=== PATIENT | female | born 1960 | race Two or more races ===

== ENCOUNTER 2019-04-07 05:36 | Inpatient (IN) | payer BC ==
--- NOTE | 2019-01-06 06:40 | NUR ---
FAMILY FRIEND AT BEDSIDE PATIENTS LONG TIME FRIEND AT BEDSIDE ASKING LOTS OF QUESTIONS, HOVERING OVER PUMPS I GIVE MEDICATION TO PATIENT. FRIEND HAS NO MEDICAL BACKGROUND BUT CONTINUED TO TRY TO ORDER ME TO GIVE SPECIFIC MEDS TO INCREASE BLOOD PRESSURE AND ORDER PROCEDURES SUCH THE BRONC THAT WAS ALREADY THE DOCTORS ORDER. FRIEND WAS TOLD THAT PER HIPPA RULES I AM UNABLE TO GIVE HER DETAILED INFORMATION REGARDING THE PATIENT. SHE WAS GENTLY TOLD THAT THE PATIENTS SON HAD ALL THE CURRENT INFORMATION SO SHE SHOULD CONTACT THE SON FOR INFORMATION REGARDING THE PATIENT. Addendum: 04/10/19 at 0648 by Tamara Germain RN INCORRECT DATE AND TIME DATE SHOULD BE 04/08/19, TIME WAS 2100
[~2019-04-07] VITALS: Ht 165.1 cm; Wt 78.6 kg
[2019-04-07] MEDS: ALBUTEROL SULF 2.5 MG/0.5ML(0.5%) NEB SOLN NEB SCH ×3 (05:53→18:15)
[2019-04-07] MEDS: IPRATROPIUM BROM 0.5 MG/2.5ML INH SOL NEB SCH ×3 (05:53→18:15)
[2019-04-07] MEDS ORDERED: IPRATROPIUM BROM 0.5 MG/2.5ML INH SOL NEB ONE ×2 (06:15→07:45)
[2019-04-07] MEDS ORDERED: VANCOMYCIN PER PHARMACY 1,000 MG IV SCH (06:15)
[2019-04-07] MEDS ORDERED: SODIUM CHLORIDE 0.9% 2,200 ML IV ONE ×2 (06:15)
[2019-04-07] MEDS ORDERED: ALBUTEROL SULF 2.5 MG/0.5ML(0.5%) NEB SOLN NEB ONE ×2 (06:15→07:45)
[2019-04-07] MEDS ORDERED: SODIUM CHLORIDE 0.9% 1,000 ML IVB ONE (07:46)
[2019-04-07 07:48] LABS: Basophils # (auto) 0 uL; Basophils % (auto) 0.1 % (0.0-2.0); Eosinophils # (auto) 0.1 uL; Eosinophils % (auto) 0.6 % (0.0-7.0); Hematocrit 37.2 % (36.0-46.0); Lymphocytes # (auto) 0.5 uL; Lymphocytes % (auto) 3.9 % (10.0-50.0); Mean Corpuscular Hemoglobin 32.4 pg (28.0-32.0); Mean Corpuscular Hgb Conc. 34.8 g/dL (32.0-36.0); Monocytes # (auto) 0.2 uL; Monocytes % (auto) 1.8 % (0.0-12.0); Neutrophils # (auto) 12.1 uL; Neutrophils % (auto) 93.6 % (37.0-80.0); Platelet Count (auto) 283 10^3/uL (140-450); Red Cell Distribution Width 13.6 % (11.8-14.3)
[2019-04-07] MEDS ORDERED: VANCOMYCIN 1GM/250ML 250 ML IV ONE (08:00)
[2019-04-07 08:02] LABS: Albumin 2.3 g/dL (3.4-5.0); Anion Gap 15 (5-15); BUN/Creatinine Ratio 22.1; Blood Urea Nitrogen 25 mg/dL (7-18); Calcium 8.5 mg/dL (8.5-10.1); Carbon Dioxide 21 mmol/L (21-32); Chloride 97 mmol/L (98-107); GFR African American 63 mL/min; GFR Non-African American 52 mL/min; Glucose 153 mg/dL (74-106); Sodium 133 mmol/L (136-145)
[2019-04-07 08:07] LABS: Alanine Aminotransferase 36 U/L (13-56); Alkaline Phosphatase 123 U/L (45-117); Aspartate Aminotransferase 39 U/L (15-37); Bilirubin, Total 1.3 mg/dL (0.2-1.0); Total Protein 7.9 g/dL (6.4-8.2)
[2019-04-07 08:10] LABS: Potassium 2.9 mmol/L (3.5-5.1)
[2019-04-07 08:26] LABS: INR 1.05 (0.9-1.15); Partial Thromboplastin Time 30.2 sec (23.64-32.05)
[2019-04-07] MEDS ORDERED: POTASSIUM EFFERVESENT TAB 25 MEQ PO ONE (08:30)
[2019-04-07] MEDS ORDERED: HYDROmorphone HCL 2 MG/ML VL IV ONE (09:00)
[2019-04-07] MEDS ORDERED: PIPERACILLIN-TAZOB 3.375GM 100 ML IV SCH (09:00)
[2019-04-07] MEDS ORDERED: ONDANSETRON HCL 4 MG/2 ML VIAL IV ONE (09:00)
[2019-04-07] MEDS ORDERED: NITROGLYCERIN 0.4 MG SL TAB SL PRN (12:00)
[2019-04-07] MEDS ORDERED: MORPHINE SULF INJ 2 MG/ML SYRINGE 1ML IV PRN (12:00)
[2019-04-07] MEDS ORDERED: guaiFENesin-DM 100/10mg/5ml SYR PO PRN (12:00)
[2019-04-07] MEDS ORDERED: IOHEXOL 350 MG/ML 100ML IJ ONE (12:29)
[2019-04-07] MEDS: SODIUM CHLORIDE 0.9% 1,000 ML IV SCH (12:36)
[2019-04-07] MEDS: cefTRIAXone 1GM/50ML D5W 50 ML IV SCH (12:37)
[2019-04-07] MEDS: ENSURE CLEAR Apple 8oz Carton PO SCH ×2 (13:25→18:13)
[2019-04-07] MEDS: AZITHROMYCIN 500MG/ 250ML 250 ML IV SCH (14:23)
[2019-04-07] MEDS: ONDANSETRON HCL 4 MG/2 ML VIAL IV PRN ×2 (14:24→19:04)
[2019-04-07] MEDS: MORPHINE SULF INJ 2 MG/ML SYRINGE 1ML IV PRN ×2 (14:24→19:03)
[2019-04-07] MEDS: ACETAMINOPHEN 500 MG TAB PO PRN (14:25)
--- NOTE | 2019-04-07 14:54 | NUR ---
Admit to [facility] POOJA FINLEY admitted to [facility] via gurney on manager cardiac cath,and portable high flow 02 nasal cannula, 100% FIO2. Patient transferred to bed, connected to unit monitoring and oxygen, and weighed by bedscale. Patient oriented to Ingrid roberts RN, unit, room, bed, and unit policies regarding patient care and visiting hours. All questions and concerns addressed, patient verbalized understanding. Sinus tachycardia on bedside monitor 120's. Stable blood pressure. Patient denies chest pain or shortness of breath at this time. Lungs clear anteriorly. Patient able to assist with repositioning in bed. Skin intact. Physical assessment performed. Bed locked in lowest position with call light within reach. Patient instructed to call for assistance PRN, pt verbalized understanding. Will continue to monitor.
[2019-04-07 15:00] VITALS: BP 141/84
--- NOTE | 2019-04-07 15:00 | NUR ---
HOME MEDICATIONS Patient stated she was taking Sumatriptan prior for Migraine but her MD recently stopped this medication because she was going to get Botox injection for treatment on 04/10/19. Patient was on morphine and Shiloh at home for pain but stated "it doesn't work so I haven't been taking them".
[2019-04-07 15:05] VITALS: BP 141/84
--- NOTE | 2019-04-07 15:20 | NUR ---
HIGH FLOW RT decreased fio2% to 90% due to oxygen saturation sustaining 96%. Will continue to monitor for signs of desaturation.
--- NOTE | 2019-04-07 15:52 | NUR ---
PAGED Ryley paged regarding elevated troponin levels. Awaiting call back.
--- NOTE | 2019-04-07 16:07 | NUR ---
RETURNED CALL Ryley ROMANO notified of latic results. No new orders received.
--- NOTE | 2019-04-07 17:32 | NUR ---
MEDICATION/PAIN Patient requesting Ambien for sleep tonight. SANDWICH MAKER paged for orders. He is aware patient still having mild chest tightness but stating morphine doesn't work well. One time dose of Toradol order received.
[2019-04-07] MEDS ORDERED: ZOLPIDEM TARTRATE 5 MG TAB PO PRN (17:45)
[2019-04-07] MEDS ORDERED: KETOROLAC TROMETH 15 mg/ml 1ML VL IV ONE (17:45)
--- NOTE | 2019-04-07 18:00 | NUR ---
OUTPUT Patient denies need or feeling of urination or fullness of bladder. Patient stated she urinate in ER before coming up. Patient stated she will attempt to urine before she goes to sleep tonight.
[2019-04-07] MEDS: BUDESONIDE (INHALATION) 0.5 MG/2 ML NEB NEB SCH (18:15)
--- NOTE | 2019-04-07 18:39 | NUR ---
INTAKE Patient attempting to eat dinner, poor appetite at this time. Patient instructed to take small bites and chew completely before swallowing. No mueller to finish dinner. Patient has not eaten meal in over a week due to poor appetite at home.
--- NOTE | 2019-04-07 19:07 | NUR ---
REPORT Report given to Dorie BOYLE, care endorsed.
--- NOTE | 2019-04-07 19:30 | NUR ---
Opening Shift Note Assumed care of patient, awake and alert,watching TV. Complained of chest tightness and was just given IV Morphine by Day shift RN. Patient is on high flow 40L/min, FIO2 90%. Noted SOB on exertion. RR 25-30/min, Saturation 94%. Afebrile. ECG on Sinus tachycardia. Full assessment done- refer intervention. Instructed on POC and to call for assist PRN, will continue to monitor for changes Q1hr and PRN. Addendum: 04/07/19 at 2039 by Dorie Irwin RN patient was able to talk long sentences without difficulty
[2019-04-07 20:00] VITALS: BP 119/80
--- NOTE | 2019-04-07 20:00 | NUR ---
ELIMINATION/DESATURATION Patient assisted to commode chair. Collected urine sample for lab tests. Had a moderate of loose stool. Noted patient desaturated to 85% while on commode chair but picks up when back to bed. Encouraged to eat small meals each time. Verbalized understanding
--- NOTE | 2019-04-07 20:15 | NUR ---
PARTIAL LINEN CHANGE DONE
--- NOTE | 2019-04-07 20:20 | NUR ---
PAIN RE-ASSESS Pain discomfort decreased to 5/10 will continue to monitor
[2019-04-07 20:24] LABS: Urine Bacteria FEW /hpf (None Seen); Urine Blood 2+ /uL (Negative); Urine Mucus FEW (None Seen); Urine Specific Gravity 1.046 (1.001-1.035); Urine WBC 6 /hpf (0 - 5)
[2019-04-07 23:51] VITALS: BP 119/80
[2019-04-08] VITALS (58 sets, daily range): BP systolic 72–174; BP diastolic 16–116
--- NOTE | 2019-04-08 00:10 | NUR ---
TEMP PATIENT'S TEMP 100F - COOLING MEASURES DONE ICE PACKS AT BOTH AXILLA, COLD COMPRESS ON FOREHEAD WILL CONTINUE TO MONITOR
--- NOTE | 2019-04-08 00:40 | NUR ---
TEMP TEMP 100.4F TYLENOL GIVEN
[2019-04-08] MEDS: ACETAMINOPHEN 500 MG TAB PO PRN (00:41)
[2019-04-08] MEDS: MORPHINE SULF INJ 2 MG/ML SYRINGE 1ML IV PRN (00:48)
--- NOTE | 2019-04-08 02:30 | NUR ---
TEMP RE-ASSESS TEMP RE-CHECKED 98.8F PATIENT IS AWAKE NOW WATCHING TV WILL CONTINUE TO MONITOR
[2019-04-08 05:10] LABS: Basophils # (auto) 0 uL; Basophils % (auto) 0.1 % (0.0-2.0); Eosinophils # (auto) 0.3 uL; Eosinophils % (auto) 3.2 % (0.0-7.0); Hematocrit 30.9 % (36.0-46.0); Hemoglobin 10.6 g/dL (12.2-16.2); Lymphocytes # (auto) 0.3 uL; Lymphocytes % (auto) 3.3 % (10.0-50.0); Mean Corpuscular Hemoglobin 31.9 pg (28.0-32.0); Mean Corpuscular Hgb Conc. 34.3 g/dL (32.0-36.0); Mean Corpuscular Volume 92.9 fL (80.0-100.0); Monocytes # (auto) 0.1 uL; Monocytes % (auto) 0.9 % (0.0-12.0); Neutrophils % (auto) 92.5 % (37.0-80.0); Platelet Count (auto) 242 10^3/uL (140-450); Red Blood Cells 3.32 10^6/uL (4.0-5.20); Red Cell Distribution Width 13.7 % (11.8-14.3); White Blood Cell 9.7 10^3/uL (4.4-10.8)
[2019-04-08 05:28] LABS: Potassium 3.4 mmol/L (3.5-5.1)
[2019-04-08 05:31] LABS: BUN/Creatinine Ratio 21.1
--- NOTE | 2019-04-08 05:50 | NUR ---
PAGED HOSPITALIST FOR LAB RESULTS
[2019-04-08] MEDS: ALBUTEROL SULF 2.5 MG/0.5ML(0.5%) NEB SOLN NEB SCH ×5 (05:54→22:14)
[2019-04-08] MEDS: IPRATROPIUM BROM 0.5 MG/2.5ML INH SOL NEB SCH ×5 (05:54→22:14)
[2019-04-08] MEDS ORDERED: VANCOMYCIN 1,500 MG in D5W 5% 250 ML IV SCH (06:00)
--- NOTE | 2019-04-08 06:20 | NUR ---
HOSPITALIST CALLED BACK TALKED TO JUAN ANTONIO GILBERT INFORMED OF LAB RESULTS ORDER RECEIVED AND VERIFIED
[2019-04-08] MEDS ORDERED: POTASSIUM CHL 20 Meq TABLET PO ONE (06:30)
--- NOTE | 2019-04-08 06:40 | NUR ---
hospitalist re paged as patient said she can't take the big tablets of potassium
[2019-04-08] MEDS: SODIUM CHLORIDE 0.9% 1,000 ML IV SCH ×2 (06:45→18:00)
--- NOTE | 2019-04-08 07:29 | NUR ---
REPORT REPORT GIVEN TO TAMAR RIVERA HOSPITALIST HASN'T CALLED BACK - ENDORSED TO FOLLOW UP POTASSIUM TO BE CHANGED TO LIQUID
[2019-04-08] MEDS: ENSURE CLEAR Apple 8oz Carton PO SCH ×3 (08:00→18:00)
[2019-04-08] MEDS ORDERED: FUROSEMIDE 40 MG/4 ML VIAL IV ONE (08:45)
[2019-04-08] MEDS ORDERED: KETOROLAC TROMETH 15 mg/ml 1ML VL ONE (08:52)
[2019-04-08] MEDS ORDERED: POTASSIUM CHLORIDE 40 MEQ, LIDOCAINE 1% (LOCAL ANESTH.) 4 ML in SODIUM CHL 0.9% 100 ML IV ONE (09:00)
[2019-04-08] MEDS ORDERED: KETOROLAC TROMETH 15 mg/ml 1ML VL IV ONE (09:00)
--- NOTE | 2019-04-08 09:30 | NUR ---
REPORT Received report from Erica BOYLE, awaiting for patient to arrive into room 111.
[2019-04-08] MEDS: ENOXAPARIN SOD 40 MG/0.4 ML SYRINGE SC SCH (09:31)
[2019-04-08] MEDS: cefTRIAXone 1GM/50ML D5W 50 ML IV SCH (09:31)
[2019-04-08] MEDS: BUDESONIDE (INHALATION) 0.5 MG/2 ML NEB NEB SCH ×2 (09:32→22:14)
[2019-04-08] MEDS ORDERED: AZITHROMYCIN 500MG/ 250ML 250 ML IV SCH (10:00)
[2019-04-08] MEDS ORDERED: cefTRIAXone 1GM/50ML D5W 50 ML IV SCH (10:00)
[2019-04-08] MEDS: AZITHROMYCIN 500MG/ 250ML 250 ML IV SCH (10:35)
[2019-04-08] MEDS ORDERED: methylPREDNISolone SOD SUCC 125 MG/2 ML VL IV ONE (11:00)
--- NOTE | 2019-04-08 11:20 | NUR ---
RECEIVED PATIENT Patient arrived into room 111 via [facility] bed transferred patient to ICU bed. Patient alert and oriented X4, speech appropriate, able to make needs know, follows simple commands. Sinus rhythm in the 90's-100's on bedside monitor, pulses palpable on upper/lower extremities with no edema observed. On high flow 40 Liters 90% sating in the mid 90's, NO signs of respiratory distress. Abdomen soft, non distended and bowel sounds present in all quadrant with last bowel movement being on 04/07/2019 per patient. Reynolds catheter draining to gravity clear yellow. IV to the right wrist 20g and left wrist 18g: good blood return and flushes easily infusing potassium replacement and antibiotic. Skin intact. Call light with in reach and bed at lowest position.
--- NOTE | 2019-04-08 11:29 | NUR ---
Resumed care at 0700. Orders reviewed and ongoing assessments being done. Upon initial assessment RR >40 and on high flow nasal cannula with a Fio2 of 80%, at rest pulse oximetry measuring 93% and during activity or speaking decreased to 85%. Diagnosed with bilateral pneumonia. Contacted Cristi Hedrick EMT DRIVER via phone at 0847 and made him aware of her condition. Cristi arrived to unit at 0856, assessed patient. Patient stated "I feel like I'm going to , I can not go on this way". ABG was drawn at 0811 by Carie MCCARTHY and Fio2 was increased to 90%. Results of chest x-ray, ABG reviewed by Cristi EMT DRIVER. Orders obtained to give Lasix 40mg IVP and Ketoralac 15mg IVP given for pleuritic chest pain and for a Reynolds catheter. Cristi discussed the need to transfer to ICU due to current respiratory status and discussed possible intubation if she continues to decompensate. Patient agrees with plan and with intubation if needed. Reynolds catheter insertion Patient assessed and determined to be in need of Reynolds catheter. Patient educated on catheter and reason for insertion. All questions answered. Reynolds catheter 16 guage Finnish inserted with clean sterile technique. Patient tolerated well. IV insertion IV access obtained, via clean sterile technique by inserting 20 gauge catheter to right arm after 1 attempt. IV secured properly. No trauma to site. Patient tolerated procedure well. Dr. Avina, hospitalist in unit at 1100am to round on the patient. Transferred to ICU at 1115. Escorted by Jamilah BOYLE and Christiane TAMEZ. Report perviously given to Rebeca BOYLE via phone. Patient contacted her niece Robbie to make her aware of her transfer.
[2019-04-08] MEDS ORDERED: LEVOFLOXACIN 750MG 150 ML IV SCH (11:30)
--- NOTE | 2019-04-08 11:55 | NUR ---
LABORATORY general technician at bedside, patient refusing to get blood drawn at this time and stating " to come back later." Re timed for 1400.
--- NOTE | 2019-04-08 12:30 | NUR ---
ACTIVITY Patient resting in bed with visitor at bedside. Family stating " that she is having shortness of breath." Patient is saturating 95% on the bedside monitor and able to speak full sentences and upon assessing patient asking for popsicle. Informed patient if shes having shortness of breath she can not have anything to eat or drink for aspiration precautions.
[2019-04-08] MEDS: ACETYLCYSTEINE 20%(200MG/ML) SOL 4ML NEB SCH ×2 (13:58→18:33)
--- NOTE | 2019-04-08 14:00 | NUR ---
FAMILY Family at bedside updated on patient condition.
--- NOTE | 2019-04-08 15:30 | NUR ---
ECHO computer laboratory technician at beside to obtain study.
[2019-04-08] MEDS: HYDROcodone-ACET 5/325MG TAB PO PRN (15:42)
[2019-04-08] MEDS: VANCOMYCIN 750 MG in D5W 5% 250 ML IV SCH (15:43)
[2019-04-08] MEDS: ALPRAZolam 0.25 MG TAB PO PRN (15:43)
--- NOTE | 2019-04-08 15:55 | NUR ---
FAMILY Family at bedside. Patient having full conversation with out any signs or symptoms of respiratory distress. O2 sats 92%.
[2019-04-08] MEDS ORDERED: ETOMIDATE (2MG/ML) 20ML VIAL IV ONE ×2 (17:22)
[2019-04-08] MEDS ORDERED: SUCCINYLCHOLINE CHLORIDE 20 MG/ML 10ML VIAL IV ONE (17:22)
[2019-04-08] MEDS ORDERED: ROCURONIUM 10MG/ML 10ML VIAL IV ONE ×2 (17:22)
--- NOTE | 2019-04-08 17:22 | NUR ---
MD Dr. Blackwood at bedside spoke to patient regarding plan of care. Patient requested to be intubated. MD agreed. Orders received to get ready for intubation and inform RT of intubation. MD ordered: Rocuronium 50mg, Etomidate 20mg, Fentanyl gtt, Diprivan gtt and Versed gtt.
[2019-04-08] MEDS ORDERED: PROPOFOL 100 ML IV ONE (17:24)
[2019-04-08] MEDS ORDERED: MIDAZOLAM DRIP 50 mg/50mL 50 ML IV ONE (17:24)
--- NOTE | 2019-04-08 17:40 | NUR ---
FAMILY/MD/CONSENTS Patients jessica Garcia at bedside and spoke to Dr. Blackwood regarding plan of care. MD also spoke to patient and patient son regarding procedure for tomorrow Bronchoscopy and patient signed consents for that procedure. Consents in chart.
--- NOTE | 2019-04-08 17:55 | NUR ---
INTUBATION Patient intubated by . Patient tolerated well. Orders received, this RN to input into system.
[2019-04-08] MEDS ORDERED: fentaNYL Drip 2500mCg/250mlNS 250 ML IV ONE (17:59)
--- NOTE | 2019-04-08 18:30 | NUR ---
NG TUBE NG tube inserted into left nare and checked placement via air bolus: clamped.
--- NOTE | 2019-04-08 18:50 | NUR ---
RESPIRATORY Respiratory therapist Eladio at bedside and decreased Fio2 down to 50%, Eladio RT spoke to Dr. Blackwood regarding ABG results post intubation.
[2019-04-08] MEDS: PIPERACILLIN-TAZOB 3.375GM 100 ML IV SCH (19:10)
--- NOTE | 2019-04-08 19:11 | NUR ---
SEDATION Charge nurse Constantine increased patients Diprivan gtt to 50mcg.
--- NOTE | 2019-04-08 19:29 | NUR ---
INITIAL CONTACT ASSUMED CARE OF PATIENT PATIENT APPEARS TO BE RESTING IN BED COMFORTABLY IN KHOI-FOWLERS POSITION, INTUBATED AND SEDATED AT THIS TIME ON FENTANYL, PROPOFOL AND VERSED. SEE IV SPREAD SHEET FOR MEDICATIONS AND TITRATION. VITAL SIGNS SHOW SINUS TACH AAO TO SELF ONLY PATIENT RESPONDS TO LIGHT PAIN WITH FACIAL GRIMACE NO S/S OF DISTRESS NOTED, PATIENT DOES NOT APPEAR TO BE IN PAIN HOWEVER PATIENT DOES APPEAR TO BE AGITATED AND ANXIOUS. NOTED WOLFE CATHETER IN PLACE AND DRAINING TO GRAVITY. NOTED NG TUBE TO LEFT NARE IN PLACE WITH NO RESIDUALS. PATIENT APPEARS TO BE DIAPHORETIC AND CLAMMY. TEMP 97.8. VENTILATOR PLUGGED INTO RED OUTLET PER VAP/PROTOCOL. AMBU BAG AT BEDSIDE. BED IN LOWEST LOCKED POSITION, SIDE RAILS UP X 2. PATIENT IN FULL VIEW OF NURSES STATION. SAFETY MAINTAINED, WILL CONTINUE TO MONITOR
[2019-04-08] MEDS: fentaNYL Drip 2500mCg/250mlNS 250 ML IV SCH (20:00)
--- NOTE | 2019-04-08 20:35 | NUR ---
DR. DEL REAL CALLED [facility] LEFT ON CELL NUMBER AWAITING CALL BACK
--- NOTE | 2019-04-08 20:35 | NUR ---
DECREASE IN PATIENT B/P PATIENT APPEARS TO BE CLAMMY/DIAPHORETIC WILL PAGE DR. DEL REAL FOR ORDERS
--- NOTE | 2019-04-08 20:40 | NUR ---
MSG LEFT FOR DR. DEL REAL TEXT MSG SENT AWAITING RESPONSE
--- NOTE | 2019-04-08 20:55 | NUR ---
DR. KABA PAGED PER PBX WILL TRANSFER DIRECTLY TO 'S AVAILABLE TEL NUMBER SPOKE TO DR. KABA, ORDERS GIVEN
[2019-04-08] MEDS ORDERED: NOREPINEPHRINE 8 MG/250ML KIT 250 ML IV ONE (21:00)
[2019-04-08] MEDS: NOREPINEPHRINE 8 MG/250ML KIT 250 ML IV SCH (21:05)
[2019-04-08] MEDS ORDERED: MEROPENEM 1GM IVPB 100 ML IV SCH (22:00)
[2019-04-08] MEDS: PROPOFOL 100 ML IV SCH (22:05)
[2019-04-08] MEDS: MIDAZOLAM DRIP 50 mg/50mL 50 ML IV SCH (22:11)
[2019-04-09] VITALS (108 sets, daily range): BP systolic 86–138; BP diastolic 35–80
[2019-04-09] MEDS: PIPERACILLIN-TAZOB 3.375GM 100 ML IV SCH ×4 (00:15→18:00)
[2019-04-09] MEDS: ACETYLCYSTEINE 20%(200MG/ML) SOL 4ML NEB SCH ×5 (00:18→21:46)
[2019-04-09] MEDS ORDERED: NITROGLYCERIN 2% OINT 1GM PKG TD ONE (01:30)
[2019-04-09] MEDS: VANCOMYCIN 750 MG in D5W 5% 250 ML IV SCH ×2 (02:31→14:00)
[2019-04-09] MEDS: PROPOFOL 100 ML IV SCH ×5 (02:36→20:48)
[2019-04-09] MEDS: IPRATROPIUM BROM 0.5 MG/2.5ML INH SOL NEB SCH ×5 (06:23→21:41)
[2019-04-09] MEDS: ALBUTEROL SULF 2.5 MG/0.5ML(0.5%) NEB SOLN NEB SCH ×5 (06:23→21:41)
[2019-04-09] MEDS: SODIUM CHLORIDE 0.9% 1,000 ML IV SCH ×2 (06:42→20:02)
--- NOTE | 2019-04-09 06:45 | NUR ---
Respiratory note: RECEIVED PATIENT ON V18 CARESCAPE VENT ORALLY INTUBATED WITH AN 8.0 ETT SECURED VIA NEVAEH AT THE 22CM MARKING AT THE LIP, AND MECHANICALLY VENTILATED WITH THE CHARTED SETTINGS. SPO2 97%, LUNG SOUNDS CLEAR T/O, NO SECRETIONS WHEN SUCTIONED. SKIN IS WARM/DAMP TO THE TOUCH AND IS INTACT NEAR NEVAEH SITE, THERE IS A NGT PLACED IN THE LEFT NARE AND SECURED TO THE NOSE, NO CENTRAL VENOUS ACCESS NOTED. NO EDEMA NOTED THROUGHOUT. NO NEW CXR TO ASSESS AT THIS TIME. PATIENT IS UNRESPONSIVE TO BOTH VERBAL/TACTILE STIMULI AND IS SEDATED ON VERSED, FENTANYL, AND PROPOFOL DRIPS, SHE IS RESTING COMFORTABLY AND TOLERATING VENT WELL, NO CHANGES MADE. VENT PLUGGED INTO RED OUTLET AND ALL ALARMS ARE SET AND AUDIBLE. WILL CONTINUE TO ASSESS PATIENT WELL VENTILATOR FUNCTION. [employer] RUN INLINE.
--- NOTE | 2019-04-09 06:50 | NUR ---
Respiratory note: FIO2 DECREASED TO 40% POST ABG RESULTS. TAMAR COHEN NOTIFIED OF CHANGE.
[2019-04-09] MEDS: ENSURE CLEAR Apple 8oz Carton PO SCH ×3 (08:00→18:00)
[2019-04-09] MEDS: NOREPINEPHRINE 8 MG/250ML KIT 250 ML IV SCH (08:00)
--- NOTE | 2019-04-09 08:00 | NUR ---
OPENING NOTE Received patient on mechanical ventilator sedated on Fentanyl 25mcg, Versed 13mg and Diprivan 45mcg. Patient opens eyes to verbal/tactile stimuli at times, pupils reactive to light, positive gag/cough reflex, does not follow commands and does not withdrawal to pain. Sinus rhythm in the 70's on bedside monitor, pulses palpable on upper.lower extremities with no edema observed. NG tube to the left nare: checked and verifed via air bolus: clamped. Abdomen soft, non tender and non distended with bowel sounds present and last bowel movement being on 04/07/2019 per patient on 04/08/2019. Reynolds catheter draining to gravity clear yellow urine. Right IJ (TLC) inserted this AM by Dr. Cleaning. Skin intact. Patients temperature in the low 97.0 with warming light on and blankets. Call light within reach and bed at lowest position. Will continue to monitor patient closely.
--- NOTE | 2019-04-09 09:00 | NUR ---
FAMILY Patients jessica Garcia at bedside, updated on patient condition.
--- NOTE | 2019-04-09 09:14 | NUR ---
Respiratory note: ETT RETRACTED 3CM AND RESECURED AT THE 19CM MARKING AT THE LIP. TAMAR BERGMAN MADE AWARE OF CHANGE.
[2019-04-09 09:38] LABS: Basophils # (auto) 0 uL; Basophils % (auto) 0.2 % (0.0-2.0); Eosinophils # (auto) 0 uL; Hematocrit 31.2 % (36.0-46.0); Hemoglobin 10.2 g/dL (12.2-16.2); Lymphocytes # (auto) 0.4 uL; Mean Corpuscular Hemoglobin 30.8 pg (28.0-32.0); Mean Corpuscular Hgb Conc. 32.5 g/dL (32.0-36.0); Mean Corpuscular Volume 94.8 fL (80.0-100.0); Monocytes # (auto) 0.2 uL; Monocytes % (auto) 1.1 % (0.0-12.0); Neutrophils # (auto) 20.1 uL; Neutrophils % (auto) 96.7 % (37.0-80.0); Nucleated Red Blood Cells % 0.1 %; Platelet Count (auto) 358 10^3/uL (140-450); Red Blood Cells 3.29 10^6/uL (4.0-5.20); Red Cell Distribution Width 13.9 % (11.8-14.3); White Blood Cell 20.8 10^3/uL (4.4-10.8)
[2019-04-09] MEDS: ENOXAPARIN SOD 40 MG/0.4 ML SYRINGE SC SCH (09:42)
[2019-04-09 09:48] LABS: Albumin 1.8 g/dL (3.4-5.0); Calcium 8.6 mg/dL (8.5-10.1); Potassium 3.5 mmol/L (3.5-5.1)
[2019-04-09 09:51] LABS: BUN/Creatinine Ratio 20.5; Bilirubin, Total 0.4 mg/dL (0.2-1.0); Total Protein 6.6 g/dL (6.4-8.2)
[2019-04-09] MEDS ORDERED: LIDOCAINE 2%HCL (LOCAL ANESTH.) INJ 20ML MDV ONE (10:32)
[2019-04-09] MEDS ORDERED: SODIUM CHLORIDE LOCK 20 ML ONE (10:33)
[2019-04-09] MEDS ORDERED: GLYCOPYRROLATE 0.2 MG/ML 1ML VIAL ONE (10:33)
[2019-04-09] MEDS ORDERED: EPINEPHrine HCL 1 MG/1 ML AMP ONE (10:33)
[2019-04-09] MEDS ORDERED: LIDOCAINE HCL 2% TOP JELLY 5ML TOP ONE (10:33)
[2019-04-09] MEDS: BUDESONIDE (INHALATION) 0.5 MG/2 ML NEB NEB SCH ×2 (10:36→17:51)
--- NOTE | 2019-04-09 10:50 | NUR ---
WOUND CARE Maggy RN from wound care at bedside to assess patients skin secondary to low lavell and low albumin. No skin issues.
[2019-04-09 10:52] LABS: Hepatitis B Surface Antibody Negative
--- NOTE | 2019-04-09 10:54 | NUR ---
WOUND CARE NOTE: Wound care in to see patient due to intubation status and low Bj score of 12, putting patient to high risk for skin breakdown. Patient is 58 y/o female with admitting diagnosis of Sepsis. Patient has history of cervical fusion, lumbar fusion and pelvic cage surgery. Patient is resting in ICU bed in Rm 111. She's intubated,sedated and mechanically ventilated. Patient appears to be in no pain using Enriquez Saldana Faces Pain Scale. Skin assessment done with the assistance of patient's nurse, TAMAR Jose. No open wound noted, no pressure injury issue noted. Patient is receiving BID/PRN cleaning and application of Barrier cream to sacrum and perineum as preventative. Repositioned patient for comfort facing her Lt side,redistributed pressure points with pillows. Patient tolerated well. TAMAR Jose at bedside. RECOMMENDATION: BID/PRN cleaning and application of Barrier cream to sacral/buttocks as preventative per MD order, Dietary consult for low Bj score, frequent turning and repositioning schedule as condition permits, redistribute pressure points with pillows, elevate heels on pillows, continue monitoring by wound care while patient is mechanically ventilated. Addendum: 04/09/19 at 1234 by Maggy Candelario RN Amended: Links added.
[2019-04-09 11:09] LABS: Hepatitis A Total Antibody Negative
--- NOTE | 2019-04-09 11:35 | NUR ---
MD Dr. Blackwood called and updated on patient condition. gave new orders to titrate peep to 10.
--- NOTE | 2019-04-09 11:40 | NUR ---
OR TEAM OR team called and informed Joslyn BOYLE that Dr. Blackwood will be here in 10minutes for perform procedure.
--- NOTE | 2019-04-09 11:45 | NUR ---
Respiratory note: PEEP DECREASED TO [address] DEL REAL'S TELEPHONE ORDER.
--- NOTE | 2019-04-09 11:50 | NUR ---
OR TEAM OR team at bedside and setting up for Bronchoscopy to be performed by Dr. Blackwood. Awaiting for MD to arrive.
--- NOTE | 2019-04-09 12:15 | NUR ---
BRONCHOSCOPY Dr. Berger at bedside with OR staff to perform procedure.
[2019-04-09 12:56] LABS: Hepatitis B Core Total AB Negative
[2019-04-09 12:59] LABS: Hepatitis B Surface Antigen Negative (Negative)
[2019-04-09 13:00] LABS: Hepatitis C Antibody Negative (Negative)
[2019-04-09] MEDS: fentaNYL Drip 2500mCg/250mlNS 250 ML IV SCH (19:30)
--- NOTE | 2019-04-09 19:33 | NUR ---
INITIAL CONTACT ASSUMED CARE OF PATIENT PATIENT APPEARS TO BE RESTING IN BED COMFORTABLY IN KHOI-FOWLERS POSITION, INTUBATED AND SEDATED AT THIS TIME ON FENTANYL, PROPOFOL AND VERSED. SEE IV SPREAD SHEET FOR MEDICATIONS AND TITRATION. VITAL SIGNS WITHIN NORMAL LIMITS. AAO TO SELF ONLY PATIENT RESPONDS TO LIGHT PAIN BACK MOVING UPPER EXTREMITIES. NO S/S OF DISTRESS NOTED, PATIENT DOES NOT APPEAR TO BE IN PAIN HOWEVER PATIENT DOES APPEAR TO BE AGITATED AND ANXIOUS. NOTED WOLFE CATHETER IN PLACE AND DRAINING TO GRAVITY. NOTED NG TUBE TO LEFT NARE IN PLACE WITH NO RESIDUALS. VENTILATOR PLUGGED INTO RED OUTLET PER VAP/PROTOCOL. AMBU BAG AT BEDSIDE. BED IN LOWEST LOCKED POSITION, SIDE RAILS UP X 2. PATIENT IN FULL VIEW OF NURSES STATION. SAFETY MAINTAINED, WILL CONTINUE TO MONITOR
[2019-04-09] MEDS: MIDAZOLAM DRIP 50 mg/50mL 50 ML IV SCH (20:45)
--- NOTE | 2019-04-09 21:30 | NUR ---
CALL RECEIVED FROM FAMILY FRIEND RECEIVED CALL FROM FAMILY FRIEND SHE REQUESTED INFORMATION REGARDING THE PATIENT. SHE WAS TOLD THAT "I AM UNABLE TO GIVE INFORMATION TO FRIENDS, THE PATIENT'S SON IS THE POINT OF CONTACT." FRIEND WAS UPSET AND HUNG UP ON ME.
--- NOTE | 2019-04-09 21:50 | NUR ---
CALL PLACED TO SON SON WAS UPDATED ON PATIENT'S CURRENT CONDITION AND PLAN OF CARE. CLARIFIED WITH SON THAT HE WILL BE POINT OF CONTACT FOR PATIENT AND PERSON TO GIVE INFORMATION TO FAMILY AND FRIENDS HE CHOOSES TO. SON STATED "NO ONE ELSE IS TO BE GIVEN INFORMATION, I WOULD LIKE TO BE POINT OF CONTACT FOR MY MOM."
--- NOTE | 2019-04-09 22:00 | NUR ---
PATIENT STATUS PATIENT APPEARS TO BE RESTLESS/ANXIOUS, TRYING TO SIT UP, MOVING ARMS TOWARDS ETT, BITTING DOWN ON ETT PATIENT SLIGHTLY OPENS EYES TO VOICE HOWEVER DOES NOT FOLLOW COMMANDS, WILL INCREASE SEDATION. SAFETY MAINTAINED, WILL CONTINUE TO MONITOR
--- NOTE | 2019-04-09 23:00 | NUR ---
PATIENT STATUS PATIENT APPEARS TO BE RESTLESS/ANXIOUS, TRYING TO SIT UP, MOVING ARMS TOWARDS ETT, BITTING DOWN ON ETT PATIENT SLIGHTLY OPENS EYES TO VOICE HOWEVER DOES NOT FOLLOW COMMANDS, WILL INCREASE SEDATION. PATIENT WAS REORIENTED TO TIME AND SITUATION. SAFETY MAINTAINED, WILL CONTINUE TO MONITOR
[2019-04-10] VITALS (86 sets, daily range): BP systolic 86–121; BP diastolic 39–75
[2019-04-10] MEDS: PIPERACILLIN-TAZOB 3.375GM 100 ML IV SCH ×4 (00:09→18:30)
--- NOTE | 2019-04-10 02:20 | NUR ---
RT AT BEDSIDE
[2019-04-10] MEDS: PROPOFOL 100 ML IV SCH (02:30)
[2019-04-10] MEDS: VANCOMYCIN 750 MG in D5W 5% 250 ML IV SCH ×2 (02:33→15:49)
[2019-04-10] MEDS: NOREPINEPHRINE 8 MG/250ML KIT 250 ML IV SCH (02:45)
[2019-04-10] MEDS: fentaNYL Drip 2500mCg/250mlNS 250 ML IV SCH (02:45)
[2019-04-10] MEDS: MIDAZOLAM DRIP 50 mg/50mL 50 ML IV SCH ×2 (03:06→12:30)
--- NOTE | 2019-04-10 03:40 | NUR ---
RT AT BEDSIDE
[2019-04-10 04:15] LABS: Hematocrit 28.6 % (36.0-46.0); Hemoglobin 9.6 g/dL (12.2-16.2); Mean Corpuscular Hemoglobin 31.7 pg (28.0-32.0); Mean Corpuscular Hgb Conc. 33.6 g/dL (32.0-36.0); Mean Corpuscular Volume 94.3 fL (80.0-100.0); Platelet Count (auto) 363 10^3/uL (140-450); Red Blood Cells 3.03 10^6/uL (4.0-5.20); Red Cell Distribution Width 13.9 % (11.8-14.3); White Blood Cell 17.7 10^3/uL (4.4-10.8)
[2019-04-10 04:17] LABS: Band Neutrophils % (manual) 0; Basophils % (manual) 0 (0.0-2.0); Blast Cells 0; Metamyelocytes % 0; Monocytes % (manual) 0 (0-12); Myelocytes % 0; Promyelocytes % 0; Reactive Lymphocytes 0
[2019-04-10 04:20] LABS: Alanine Aminotransferase 20 U/L (13-56); Albumin 1.6 g/dL (3.4-5.0); Alkaline Phosphatase 79 U/L (45-117); Anion Gap 10 (5-15); Aspartate Aminotransferase 16 U/L (15-37); BUN/Creatinine Ratio 24.3; Bilirubin, Total 0.4 mg/dL (0.2-1.0); Blood Urea Nitrogen 25 mg/dL (7-18); Calcium 7.8 mg/dL (8.5-10.1); Carbon Dioxide 25 mmol/L (21-32); Chloride 105 mmol/L (98-107); GFR African American 71 mL/min; GFR Non-African American 58 mL/min; Glucose 124 mg/dL (74-106); Magnesium 2.7 mg/dL (1.6-2.6); Potassium 3.3 mmol/L (3.5-5.1); Sodium 140 mmol/L (136-145); Total Protein 5.9 g/dL (6.4-8.2)
[2019-04-10 04:27] LABS: Eosinophils % (manual) 4 (0-7); Lymphocytes % (manual) 8 (10.0-50.0)
[2019-04-10] MEDS: IPRATROPIUM BROM 0.5 MG/2.5ML INH SOL NEB SCH ×5 (06:56→22:54)
[2019-04-10] MEDS: ACETYLCYSTEINE 20%(200MG/ML) SOL 4ML NEB SCH ×3 (06:57→19:17)
[2019-04-10] MEDS: ALBUTEROL SULF 2.5 MG/0.5ML(0.5%) NEB SOLN NEB SCH ×5 (06:57→22:54)
[2019-04-10] MEDS: ENSURE CLEAR Apple 8oz Carton PO SCH ×3 (08:00→18:00)
[2019-04-10] MEDS ORDERED: DEXTROSE (50%) 50ML SYRG IV PRN (08:15)
[2019-04-10] MEDS ORDERED: Jevity 1.2 Cal/Fiber 1 Liter GT SCH (08:15)
[2019-04-10] MEDS: ENOXAPARIN SOD 40 MG/0.4 ML SYRINGE SC SCH (10:08)
[2019-04-10] MEDS: FAMOTIDINE (10MG/ML) 2ML VL IV SCH (10:08)
[2019-04-10] MEDS: POTASSIUM CHL 20MEQ/100ML 100 ML IV SCH ×2 (10:09→12:30)
[2019-04-10] MEDS: BUDESONIDE (INHALATION) 0.5 MG/2 ML NEB NEB SCH ×2 (10:41→19:16)
--- NOTE | 2019-04-10 11:30 | NUR ---
ELEVATED TEMPERATURE PATIENTS RECTAL TEMPERATURE ELEVATED, 101.3. COOLING MEASURES STARTED. WILL CONTINUE TO MONITOR CLOSELY
--- NOTE | 2019-04-10 11:52 | NUR ---
NUTRITION CONSULT/ASSESSMENT NOTES Please refer to link notes of nutrition screen form filed under the intervention section of the plan of care for further details. Est. Needs: 1650 kcal to 2050 kcal (20-25 kcal/kgBW), 66 gms to 83 gms pro (0.8-1.0 gms/kgBW). Will continue to monitor pertinent labs and reassess nutrient need prn Thank you for consult. Addendum: 04/10/19 at [address] Amended: Links added.
[2019-04-10] MEDS: ACETAMINOPHEN 500 MG TAB PO PRN ×2 (12:00→19:07)
--- NOTE | 2019-04-10 12:05 | NUR ---
PATIENTS FAMILY CALLED PROVIDED PASSWORD, UPDATED ON STATUS AND PLAN OF CARE. ADDRESSED CONCERNS
--- NOTE | 2019-04-10 12:22 | NUR ---
DR DEL REAL AT BEDSIDE UPDATED ON STATUS THROUGHOUT NIGHT. RECEIVED NEW ORDERS
[2019-04-10] MEDS: ACCU-CHEK COMFORT CURVE STRIP VI SCH ×2 (12:30→18:30)
[2019-04-10] MEDS: InsuLIN REG 1unit/0.01ml Soln (100units/ml) SC SCH ×2 (12:30→18:00)
--- NOTE | 2019-04-10 13:15 | NUR ---
PATIENTS FRIEND AT BEDSIDE
[2019-04-10] MEDS: SODIUM CHLORIDE 0.9% 1,000 ML IV SCH (19:06)
--- NOTE | 2019-04-10 19:44 | NUR ---
INITIAL CONTACT ASSUMED CARE OF PATIENT PATIENT APPEARS TO BE RESTING IN BED COMFORTABLY IN KHOI-FOWLERS POSITION, INTUBATED AND SEDATED AT THIS TIME ON FENTANYL, PROPOFOL AND VERSED. SEE IV SPREAD SHEET FOR MEDICATIONS AND TITRATION. VITAL SIGNS WITHIN NORMAL LIMITS. AAO TO SELF ONLY PATIENT RESPONDS TO LIGHT PAIN WITH UPPER EXTREMITY MOVEMENTS NO S/S OF DISTRESS NOTED, PATIENT DOES NOT APPEAR TO BE IN PAIN AT THIS TIME. NOTED WOLFE CATHETER IN PLACE AND DRAINING TO GRAVITY. NOTED NG TUBE TO LEFT NARE IN PLACE WITH NO RESIDUALS. TEMP 101.8, COOLING MEASURES IN PLACE, FAN/ICE PACKS. VENTILATOR PLUGGED INTO RED OUTLET PER VAP/PROTOCOL. AMBU BAG AT BEDSIDE. BED IN LOWEST LOCKED POSITION, SIDE RAILS UP X 2. PATIENT IN FULL VIEW OF NURSES STATION. SAFETY MAINTAINED, WILL CONTINUE TO MONITOR
[2019-04-10] MEDS: AZITHROMYCIN 500MG/ 250ML 250 ML IV SCH (21:00)
[2019-04-11] VITALS (99 sets, daily range): BP systolic 76–119; BP diastolic 33–65
[2019-04-11] MEDS: PROPOFOL 100 ML IV SCH
[2019-04-11] MEDS: PIPERACILLIN-TAZOB 3.375GM 100 ML IV SCH ×4 (02:38→18:13)
[2019-04-11] MEDS: SODIUM CHLORIDE 0.9% 1,000 ML IV SCH ×2 (02:50→13:00)
[2019-04-11] MEDS: ACCU-CHEK COMFORT CURVE STRIP VI SCH ×4 (02:50→18:00)
[2019-04-11] MEDS: InsuLIN REG 1unit/0.01ml Soln (100units/ml) SC SCH ×4 (02:50→18:00)
--- NOTE | 2019-04-11 04:00 | NUR ---
CARE ENDORSED TO TAMAR HERNDON ALL QUESTIONS ANSWERED
--- NOTE | 2019-04-11 04:00 | NUR ---
TOOK OVER FOR TAMAR COHEN. SEDATED. PUPILS PINPOINT AND FIXED. CLEAR ORAL SECRETIONS. LUNGS CLEAR. OVERBREATHING THE VENTILATOR. ABDOMEN SOFT. NGT RESIDUAL 2 CC. RESTARTED JEVITY AT 15CC/HR. NO BOWEL SOUNDS. WOLFE IN PLACE. DARK TALITA CLEAR LIQUID. ALL PULSES PALPABLE. NO PITTING EDEMA IN LOWER EXTREMITIES. SOCKS ON. SCDS ON. FAN TURNED OFF.CENTRAL LINE DRESSING CHANGE. OLD BLOOD AT SITE. DC'D 2 OF THE OUTDATED PERIPHERAL IVS. NO SKIN ISSUES.
[2019-04-11] MEDS: fentaNYL Drip 2500mCg/250mlNS 250 ML IV SCH ×2 (04:30→23:03)
[2019-04-11] MEDS: NOREPINEPHRINE 8 MG/250ML KIT 250 ML IV SCH (04:30)
[2019-04-11] MEDS: MIDAZOLAM DRIP 50 mg/50mL 50 ML IV SCH ×3 (04:30→20:00)
[2019-04-11] MEDS: VANCOMYCIN 750 MG in D5W 5% 250 ML IV SCH ×2 (06:00→14:45)
--- NOTE | 2019-04-11 06:00 | NUR ---
BATH GIVEN. NSR WITHOUT ECTOPY. NO BM THIS SHIFT. URINE A DARK TALITA. TEMPERATURE IMPROVING. HAND WITH THE PULSE OX IS ICE COLD. PUT A WARM BLANKET AROUND IT AND HAVE ORDERED ANOTHER PROBE. REPOSITIONED TO RIGHT SIDE. ALL NEW DRIPS FOR TODAY. RESIDUAL FROM THE NGT WAS ONLY 10CC. CONTINUING THE TUBE FEEDING. 2 PERIPHERAL IVS REMOVED, OUTDATED. BILATERAL MITTENS ON.
--- NOTE | 2019-04-11 06:55 | NUR ---
DESATURATED TO 88%. RT IN THE ROOM. SUCTIONED A MODERATE AMOUNT OF WHITE SECRETIONS. SATURATION DID NOT IMPROVE. RT HAS PUT HER UP TO 100% AND HER SATURATION IS NOW 97%
[2019-04-11 07:43] LABS: Basophils # (auto) 0 uL; Basophils % (auto) 0.2 % (0.0-2.0); Eosinophils # (auto) 0.3 uL; Eosinophils % (auto) 2.1 % (0.0-7.0); Hematocrit 29.2 % (36.0-46.0); Hemoglobin 9.7 g/dL (12.2-16.2); Lymphocytes # (auto) 0.6 uL; Lymphocytes % (auto) 4.5 % (10.0-50.0); Mean Corpuscular Hemoglobin 31.6 pg (28.0-32.0); Mean Corpuscular Hgb Conc. 33.1 g/dL (32.0-36.0); Mean Corpuscular Volume 95.5 fL (80.0-100.0); Monocytes # (auto) 0.1 uL; Monocytes % (auto) 0.8 % (0.0-12.0); Neutrophils # (auto) 12.3 uL; Neutrophils % (auto) 92.4 % (37.0-80.0); Platelet Count (auto) 347 10^3/uL (140-450); Red Blood Cells 3.06 10^6/uL (4.0-5.20); Red Cell Distribution Width 14.3 % (11.8-14.3); White Blood Cell 13.4 10^3/uL (4.4-10.8)
--- NOTE | 2019-04-11 07:51 | NUR ---
AM CHEST XRAY COMPLETED, RESPIRATORY THERAPY AT BEDSIDE AND REVIEWED IMAGINE, ET TUBE NEEDED TO BE ADVANCED. RESPIRATORY THERAPIST ADVANCED, IMAGINE TAKEN AND SENT TO RADIOLOGIST. PATIENT CONTINUED TO DESATURATED, FIO2 TITRATED BY RESPIRATORY THERAPIST AND ABG OBTAIN. WILL MONITOR CLOSELY.
[2019-04-11] MEDS: POTASSIUM CHL 20MEQ/100ML 100 ML IV SCH ×3 (08:00→12:36)
[2019-04-11] MEDS: ENSURE CLEAR Apple 8oz Carton PO SCH ×3 (08:00→18:00)
[2019-04-11 08:08] LABS: Albumin 1.6 g/dL (3.4-5.0); Calcium 7.8 mg/dL (8.5-10.1); Potassium 3.4 mmol/L (3.5-5.1)
[2019-04-11 08:13] LABS: BUN/Creatinine Ratio 19.2; Bilirubin, Total 0.9 mg/dL (0.2-1.0); Total Protein 5.9 g/dL (6.4-8.2)
--- NOTE | 2019-04-11 09:05 | NUR ---
DR MARTINEZ AT BEDSIDE UPDATED ON CURRENT STATUS
[2019-04-11] MEDS: ALBUTEROL SULF 2.5 MG/0.5ML(0.5%) NEB SOLN NEB SCH ×5 (09:40→22:10)
[2019-04-11] MEDS: ACETYLCYSTEINE 20%(200MG/ML) SOL 4ML NEB SCH ×5 (09:40→22:11)
[2019-04-11] MEDS: IPRATROPIUM BROM 0.5 MG/2.5ML INH SOL NEB SCH ×5 (09:40→22:10)
[2019-04-11] MEDS: BUDESONIDE (INHALATION) 0.5 MG/2 ML NEB NEB SCH ×2 (09:41→18:48)
[2019-04-11] MEDS: ENOXAPARIN SOD 40 MG/0.4 ML SYRINGE SC SCH (09:50)
[2019-04-11] MEDS: FAMOTIDINE (10MG/ML) 2ML VL IV SCH (09:50)
[2019-04-11] MEDS: AZITHROMYCIN 500MG/ 250ML 250 ML IV SCH (09:50)
--- NOTE | 2019-04-11 11:52 | NUR ---
PATIENTS SON AT BEDSIDE UPDATED ON STATUS AND PLAN OF CARE
--- NOTE | 2019-04-11 12:10 | NUR ---
SPOKE WITH DR GARCIA UPDATED ON STATUS THROUGHOUT THE NIGHT, NO NEW ORDERS AT THIS TIME
--- NOTE | 2019-04-11 12:30 | NUR ---
ELEVATED TEMPERATURE PATIENTS RECTAL TEMPERATURE ELEVATED, 100.6, COOLING MEASURES IN PLACE AND COOLING BLANKET APPLIED. WILL CONTINUE TO MONITOR CLOSELY
[2019-04-11] MEDS: ACETAMINOPHEN 500 MG TAB PO PRN ×2 (13:56→21:49)
--- NOTE | 2019-04-11 15:50 | NUR ---
AGITATION PATIENT BECOMES AGITATED, TRYING TO SIT OUT OF BED WHEN SHE HEARS SONS VOICE, OPENING EYES BUT NOT FOCUSING OR TRACKING APPROPRIATELY. INCREASED SEDATIONS FOR PATIENTS COMFORT. WILL CONTINUE TO MONITOR CLOSELY
[2019-04-11] MEDS: DexMEDEtomidine 400 MCG in D5W 5% 96 ML IV SCH ×3 (17:32)
[2019-04-11] MEDS ORDERED: FUROSEMIDE 20 MG/2 ML VIAL IV ONE (19:15)
--- NOTE | 2019-04-11 20:00 | NUR ---
INTUBATED. SEDATED. ETT TO VENTILATOR. DR GARCIA HERE. VENTILATOR CHANGES. FIO2 30% AND PEEP OF 8. LUNGS CLEAR. SINUS TACHYCARDIA 105. SBP SUPPORTED WITH LEVOPHED. SEDATION: FENTANYL AND VERSED. ABDOMEN SOFT. NGT WITH JEVITY AT 30CC/HR. RESIDUAL ONLY 10CC. NO BM. WOLFE IN PLACE. TONIGHT THE URINE IS YELLOW. NO EDEMA. ALL PULSES PALPABLE. ANKLE/FOOT IS COLD. COOLING BLANKET ON. TEMP 101.6. ICE BAG TO BACK OF NECK. LASIX 20 IV GIVEN. NORMAL SALINE AT 75CC/ HR REDUCED TO TKO.
--- NOTE | 2019-04-11 20:36 | NUR ---
PEEP PREVIOUSLY TITRATED TO +8 AT 1851. PT TOLERATING CURRENT SETTINGS. PEEP TITRATED TO +5 AT THIS TIME. O2 SATURATION SUSTAINED AT 99% WITH AN FIO2 OF 30%. Addendum: 04/11/19 at 2037 by ALYSSA TRUONG RT PER DR. GARCIA
--- NOTE | 2019-04-11 22:09 | NUR ---
DESATURATION TO 86%. FIO2 INCREASED TO 100%. RT IS WORKING ON THE LOW SATURATION.
--- NOTE | 2019-04-11 22:30 | NUR ---
AC 18 FIO2 50% PEEP OF 5, TV 450. WITH THAT THE O2 SATURATION IS 100%. PATIENT WENT THROUGH A PERIOD OF TRYING TO SIT UP WITH ARMS RAISING UP AND TOWARDS HER HEAD. INCREASED THE PRECEDEX TO MAX. JEVITY BEING TOLERATED. TMAX 101.6. TYLENOL GIVEN. NSR WITHOUT ECTOPY. TEMP COMING DOWN AT 2350 TO 100.8.
[2019-04-12] VITALS (106 sets, daily range): BP systolic 91–130; BP diastolic 47–80
--- NOTE | 2019-04-12 | NUR ---
OUT OF PRECEDEX. INCREASED THE SEDATION TO COMPENSATE FOR LACK OF PRECEDEX.NSR WITHOUT ECTOPY. RECTAL PROBE HIGHER THAN ORAL AND AXILLA TEMPS. WHITE SECRETIONS FROM THE ETT. ORAL CARE DONE. ABDOMEN SOFT. WOLFE DRAINING CLEAR YELLOW LIQUID IN ADEQUATE AMOUNTS. PERIPHERAL IV DCD. NO BM YET.
[2019-04-12] MEDS: NOREPINEPHRINE 8 MG/250ML KIT 250 ML IV SCH (01:00)
[2019-04-12] MEDS: VANCOMYCIN 750 MG in D5W 5% 250 ML IV SCH ×2 (02:00→13:59)
--- NOTE | 2019-04-12 02:00 | NUR ---
CHG BATH. LOTION TO SKIN. RAC REDNESS FROM BLOOD PRESSURE CUFF. REPOSITIONED CUFF. ALL PULSES PALPABLE.LUNGS CLEAR.
--- NOTE | 2019-04-12 03:00 | NUR ---
AM LABS DRAWN
--- NOTE | 2019-04-12 04:00 | NUR ---
LEFT WRIST IV REMOVED. COMPLETE LINEN CHANGE. NEW KALYN VALVE. NEW BLOOD PRESSURE CUFF. UNABLE TO WEAN THE LEVOPHED. WAITING FOR PHARMACY AT 0630 TO OBTAIN PRECEDEX. SUCTIONED ETT FOR A SMALL AMOUNT OF WHITE SECRETIONS. ORAL CARE.
[2019-04-12 04:10] LABS: Anion Gap 22 (5-15); Blood Urea Nitrogen 13 mg/dL (7-18); Carbon Dioxide 12 mmol/L (21-32); Chloride 104 mmol/L (98-107); Potassium 3.9 mmol/L (3.5-5.1); Sodium 138 mmol/L (136-145)
[2019-04-12 04:13] LABS: Alanine Aminotransferase 13 U/L (13-56); Aspartate Aminotransferase 10 U/L (15-37); GFR African American 88 mL/min; GFR Non-African American 73 mL/min
[2019-04-12 04:16] LABS: Alkaline Phosphatase 99 U/L (45-117); Bilirubin, Total 1.3 mg/dL (0.2-1.0); Calcium 7.3 mg/dL (8.5-10.1); Glucose 118 mg/dL (74-106); Total Protein 5.7 g/dL (6.4-8.2)
[2019-04-12 04:31] LABS: Albumin 0.1 g/dL (3.4-5.0)
--- NOTE | 2019-04-12 05:00 | NUR ---
DESATURATION AGAIN FOR NO REASON. FIO2 INCREASED TO 40% FROM 30%. SATURATION NOW 94%, NOT 88%
[2019-04-12 05:11] LABS: Hematocrit 26.2 % (36.0-46.0); Hemoglobin 8.7 g/dL (12.2-16.2); Mean Corpuscular Hemoglobin 31.8 pg (28.0-32.0); Mean Corpuscular Hgb Conc. 33.2 g/dL (32.0-36.0); Mean Corpuscular Volume 95.5 fL (80.0-100.0); Platelet Count (auto) 323 10^3/uL (140-450); Red Blood Cells 2.74 10^6/uL (4.0-5.20); Red Cell Distribution Width 14.3 % (11.8-14.3); White Blood Cell 11.8 10^3/uL (4.4-10.8)
[2019-04-12 05:41] LABS: Basophils % (manual) 0 (0.0-2.0); Blast Cells 0; Metamyelocytes % 0; Myelocytes % 0; Promyelocytes % 0; Reactive Lymphocytes 0
[2019-04-12] MEDS: InsuLIN REG 1unit/0.01ml Soln (100units/ml) SC SCH ×5 (06:00→23:25)
--- NOTE | 2019-04-12 06:00 | NUR ---
REPOSITIONED TO RIGHT SIDE. ORAL CARE. NSR WITHOUT ECTOPY. RECTAL TEMP 102.2. ORAL TEMP 102.4
[2019-04-12] MEDS: PIPERACILLIN-TAZOB 3.375GM 100 ML IV SCH ×5 (06:02→23:08)
[2019-04-12] MEDS: ACCU-CHEK COMFORT CURVE STRIP VI SCH ×5 (06:03→23:24)
[2019-04-12 06:06] LABS: Band Neutrophils % (manual) 2; Eosinophils % (manual) 2 (0-7); Lymphocytes % (manual) 5 (10.0-50.0); Monocytes % (manual) 2 (0-12)
[2019-04-12 06:32] LABS: BUN/Creatinine Ratio 15.4
[2019-04-12] MEDS: ACETAMINOPHEN 500 MG TAB PO PRN ×2 (06:48→20:31)
--- NOTE | 2019-04-12 06:58 | NUR ---
JUST SPIKED A FEVER TO 102.4 . TYLENOL GIVEN DOWN THE [place] SUMP. SUMP CLAMPED. ICE BAG TO BACK OF NECK AND UNDER BOTH AXILLA.
[2019-04-12] MEDS: ACETYLCYSTEINE 20%(200MG/ML) SOL 4ML NEB SCH ×5 (07:15→22:53)
[2019-04-12] MEDS: ALBUTEROL SULF 2.5 MG/0.5ML(0.5%) NEB SOLN NEB SCH ×5 (07:15→22:54)
[2019-04-12] MEDS: IPRATROPIUM BROM 0.5 MG/2.5ML INH SOL NEB SCH ×5 (07:15→22:54)
[2019-04-12] MEDS: ENSURE CLEAR Apple 8oz Carton PO SCH ×3 (07:50→18:00)
[2019-04-12] MEDS: PROPOFOL 100 ML IV SCH ×2 (08:35→23:11)
[2019-04-12] MEDS: MIDAZOLAM DRIP 50 mg/50mL 50 ML IV SCH ×2 (08:36→12:58)
--- NOTE | 2019-04-12 09:21 | NUR ---
DR. MARTINEZ PAGED REGARDING ALBUMIN LEVEL. AWAITING CALLBACK
[2019-04-12] MEDS: AZITHROMYCIN 500MG/ 250ML 250 ML IV SCH (09:42)
[2019-04-12] MEDS: FAMOTIDINE (10MG/ML) 2ML VL IV SCH (09:42)
[2019-04-12] MEDS: fentaNYL Drip 2500mCg/250mlNS 250 ML IV SCH ×2 (09:43→21:44)
[2019-04-12] MEDS: ENOXAPARIN SOD 40 MG/0.4 ML SYRINGE SC SCH (09:43)
--- NOTE | 2019-04-12 10:00 | NUR ---
Respiratory note: ventilator circuit changed due to ventilator alarming "circuit leak". Circuit was changed without any incident. Patient was being manually ventilated during change. no incident occurred. Will continue to monitor patient.
--- NOTE | 2019-04-12 10:40 | NUR ---
DR. MARTINEZ CALLBACK ORDERS RECEIVED
[2019-04-12] MEDS: ALBUMIN 25% 100 ML IV SCH ×3 (11:11→13:59)
[2019-04-12] MEDS: BUDESONIDE (INHALATION) 0.5 MG/2 ML NEB NEB SCH ×2 (12:08→18:59)
--- NOTE | 2019-04-12 12:40 | NUR ---
FAMILY SON UPDATED ON PATIENT STATUS AFTER PROVIDING PASSWORD. ALL QUESTIONS AND CONCERNS ADDRESSED AT THIS TIME
--- NOTE | 2019-04-12 14:07 | NUR ---
DR. HEDRICK AT BEDSIDE
--- NOTE | 2019-04-12 14:13 | NUR ---
URINE SENT TO LAB VIA BULLET
[2019-04-12 14:29] LABS: Urine Amorphous Crystal FEW /hpf (None Seen); Urine Bacteria FEW /hpf (None Seen); Urine Blood Negative /uL (Negative); Urine Specific Gravity 1.007 (1.001-1.035); Urine WBC 2 /hpf (0 - 5)
[2019-04-12] MEDS: DexMEDEtomidine 400 MCG in D5W 5% 96 ML IV SCH (14:39)
[2019-04-12 14:41] LABS: Protein, Urine 38.3 mg/dL (0.0-11.9)
--- NOTE | 2019-04-12 15:23 | NUR ---
DR. MARTINEZ PAGED REGARDING VIRAL PANEL. AWAITING CALLBACK
--- NOTE | 2019-04-12 15:28 | NUR ---
MD CALLBACK NO ORDERS RECEIVED.
--- NOTE | 2019-04-12 15:48 | NUR ---
PARTIAL LINEN CHANGE PERFORMED AT THIS TIME
--- NOTE | 2019-04-12 19:25 | NUR ---
REPORT GIVEN TO MANUELA BOYLE TO ASSUME CARE
--- NOTE | 2019-04-12 19:50 | NUR ---
DESATURATION 84-85%, DR. GARCIA @ BEDSIDE, FIO2 INCREASED TO 100%, PEEP 8. PAGED RT.
--- NOTE | 2019-04-12 20:05 | NUR ---
RT @ BEDSIDE, FIO2 DECREASED TO 60%, PEEP 8. SPO2, 98-100%. NO DISTRESS NOTED. MAINTAINED ON MODERATE HIGH BACK REST.
--- NOTE | 2019-04-12 20:31 | NUR ---
TEMP 101.5, TYLENOL 500MG GIVEN PER NGT, PATENCY CHECKED PRIOR TO MED ADMINISTRATION, PLACED ON COOLING BLANKET. WILL MONITOR VS.
--- NOTE | 2019-04-12 21:54 | NUR ---
OFF VERSED DRIP
[2019-04-13] VITALS (104 sets, daily range): BP systolic 92–152; BP diastolic 43–106
--- NOTE | 2019-04-13 00:09 | NUR ---
AND DR. GARCIA AT BEDSIDE, VIRAL CULTURE COMMUNICATED BY DR. GARCIA TO ALYSSA MCCARTHY.
--- NOTE | 2019-04-13 00:10 | NUR ---
TEMP 98.2
--- NOTE | 2019-04-13 02:00 | NUR ---
Off levophed, BP 113/69, HR 67
[2019-04-13] MEDS: VANCOMYCIN 750 MG in D5W 5% 250 ML IV SCH ×2 (02:58→14:31)
--- NOTE | 2019-04-13 03:00 | NUR ---
Off fentanyl drip
[2019-04-13] MEDS: DexMEDEtomidine 400 MCG in D5W 5% 96 ML IV SCH ×2 (03:06→17:44)
--- NOTE | 2019-04-13 03:07 | NUR ---
Precedex 0.2 mcg/kg/hr started, BP 104/59, HR 80, R 19, SPO2 98%.
--- NOTE | 2019-04-13 03:08 | NUR ---
Patient bathe/linen change Patient given partial bath. Skin integrity assessed for any changes. Linens changed. Patient repositioned for comfort. Oral care done.
[2019-04-13 03:57] LABS: Eosinophils # (auto) 0.1 uL; Eosinophils % (auto) 1.7 % (0.0-7.0); Mean Corpuscular Hgb Conc. 33.4 g/dL (32.0-36.0); Monocytes # (auto) 0.2 uL; Neutrophils # (auto) 7.5 uL
[2019-04-13 04:01] LABS: Basophils # (auto) 0 uL; Basophils % (auto) 0.1 % (0.0-2.0); Hematocrit 24.6 % (36.0-46.0); Hemoglobin 8.2 g/dL (12.2-16.2); Lymphocytes # (auto) 0.4 uL; Lymphocytes % (auto) 5.2 % (10.0-50.0); Mean Corpuscular Volume 95.6 fL (80.0-100.0); Platelet Count (auto) 314 10^3/uL (140-450); Red Blood Cells 2.57 10^6/uL (4.0-5.20); Red Cell Distribution Width 14.1 % (11.8-14.3); White Blood Cell 8.3 10^3/uL (4.4-10.8)
[2019-04-13 04:17] LABS: Albumin 2.3 g/dL (3.4-5.0); Bilirubin, Direct 0.5 mg/dL (0-0.2); Calcium 7.9 mg/dL (8.5-10.1); Potassium 3.8 mmol/L (3.5-5.1); Uric Acid 1.6 mg/dL (2.6-6.0)
[2019-04-13 04:20] LABS: BUN/Creatinine Ratio 16.5; Bilirubin, Total 0.8 mg/dL (0.2-1.0); Total Protein 6.1 g/dL (6.4-8.2)
--- NOTE | 2019-04-13 05:14 | NUR ---
Received a call from Jose (son), updated on pt's status after obtaining a password.
[2019-04-13] MEDS: InsuLIN REG 1unit/0.01ml Soln (100units/ml) SC SCH ×3 (06:00→17:45)
[2019-04-13] MEDS: ACCU-CHEK COMFORT CURVE STRIP VI SCH ×3 (06:26→17:46)
[2019-04-13] MEDS: PIPERACILLIN-TAZOB 3.375GM 100 ML IV SCH ×3 (06:27→17:36)
[2019-04-13] MEDS: IPRATROPIUM BROM 0.5 MG/2.5ML INH SOL NEB SCH ×4 (06:37→18:45)
[2019-04-13] MEDS: ALBUTEROL SULF 2.5 MG/0.5ML(0.5%) NEB SOLN NEB SCH ×4 (06:37→18:46)
[2019-04-13] MEDS: ACETYLCYSTEINE 20%(200MG/ML) SOL 4ML NEB SCH ×4 (06:37→18:46)
--- NOTE | 2019-04-13 07:30 | NUR ---
Opening Shift Note Received report from overnight nurse. Assumed care of patient in room 111. Patient is sedated at the moment. carried out physical assessment that will be charted. reviewing for the plan of care for the day. Will continue to monitor for changes Q1hr and PRN. Signed: 04/13/19 at 821 by SN JOHN <Co-Signature Required> Co-Signed: 04/13/19 at 821 by Allen Snow RN
[2019-04-13] MEDS: ENSURE CLEAR Apple 8oz Carton PO SCH ×3 (08:00→17:46)
--- NOTE | 2019-04-13 08:00 | NUR ---
SEDATION OFF ALL SEDATION HELD. PLAN FOR CPAP TRIAL ONCE PATIENT SHOWS HIGHER LEVEL OF RESPONSE. CONTINUING TO MONITOR.
--- NOTE | 2019-04-13 08:11 | NUR ---
DR. MARTINEZ AT BEDSIDE
[2019-04-13] MEDS: FAMOTIDINE (10MG/ML) 2ML VL IV SCH (09:50)
[2019-04-13] MEDS: AZITHROMYCIN 500MG/ 250ML 250 ML IV SCH (09:50)
[2019-04-13] MEDS: ENOXAPARIN SOD 40 MG/0.4 ML SYRINGE SC SCH (09:51)
[2019-04-13] MEDS: BUDESONIDE (INHALATION) 0.5 MG/2 ML NEB NEB SCH ×2 (10:14→18:46)
--- NOTE | 2019-04-13 12:28 | NUR ---
Nutrition Follow-up Notes Wt.: 85.1 kg Pt's intubated off sedation, no immediate family member at bedside when rounded this morning. Pt's currently on NPO with EN support temporarily on hold as pt for possible CPAP per RN. Est. Needs: 1650 kcal to 2050 kcal (20-25 kcal/kgBW), 66 gms to 83 gms pro (0.8-1.0 gms/kgBW). Will continue to monitor pertinent labs and reassess nutrient need prn Labs: CA 7.9 L, ALB 2.3 L. Skin: Bj scale 15, mod risk no wounds per custodian manager. GI: Pt had 1 BM on 04/07 per custodian manager. PES: Altered nutrition related lab values r/t acute/chronic medical condition aeb hyperglycemia, hypokalemia, elev. renal labs, hyperbilirubinemia and severe hypoalbuminemia Increase nutrient needs r.t current medical condition aeb intubated, sedated, mod hypoalbuminemia, NPO with EN support. Will continue to monitor NPO status, skin status, pertinent labs and weight trend. F/u in 2 to 3 days. Rec.: 1.) If still NPO with EN support, consider to resume EN feeds with Jevity 1.2 Gregory to 50 ml/hr goal rate as tolerated if pt fails CPAP. 2.) If Albumin level continues trending down with improved renal labs, consider Prostat 1 pkt BID. 3.) Advance gradually to oral diet when medically appropriate 4.) Refer to CDE/RD for further nutrition education and weight monitoring upon discharged. 5.) Continue current plan of care.
--- NOTE | 2019-04-13 13:10 | NUR ---
CPAP TRIAL VENTILATOR SWITCHED TO CPAP, PATIENT DID NOT TOLERATE WELL. INCREASED RESPIRATORY RATE IN THE 50's WITH LOW TIDAL VOLUMES. RT SWITCHED VENT BACK TO PREVIOUS SETTINGS. CONTINUE TO MONITOR. ORDERS FOR CPAP TRIAL TOMORROW MORNING ALONG WITH REPEAT BLOOD GAS.
--- NOTE | 2019-04-13 14:07 | NUR ---
DR. HEDRICK AT BEDSIDE NO ORDERS RECEIVED
--- NOTE | 2019-04-13 14:50 | NUR ---
Respiratory note: PLACED PT ON CPAP TRIAL. PT DID NOT TOLERATE CHANGE. CPAP TRIAL ENDED AFTER 1 MINUTE FOR INCREASED RR AND DECREASED VT . VENT WENT BACK TO ORIGINAL SETTING OF Karime BOYLE AND DR.GOMEZ ROPER.
--- NOTE | 2019-04-13 15:40 | NUR ---
AT BEDSIDE DR GARCIA AT BEDSIDE. ORDERS GIVEN TO CONTROL SEDATION USING VERSED IV PUSH NEEDED. INCREASING VENT FIO2 FROM 30 TO 35. BLOOD GASES WILL BE DRAWN TOMORROW MORNING.
--- NOTE | 2019-04-13 15:40 | NUR ---
COOLING MEASURES TWO ICE BAGS IN PLACE, FAN TURNED ON, REMOVED ANY EXTRA BLANKETS. WILL RECHECK, IF NEEDED CAN USE TYLENOL.
[2019-04-13] MEDS ORDERED: FUROSEMIDE 40 MG/4 ML VIAL IV ONE (15:45)
[2019-04-13] MEDS: MIDAZOLAM HCL 1MG/1ML-2 ML VIAL IV PRN (15:46)
--- NOTE | 2019-04-13 17:10 | NUR ---
FAMILY SON TRACY UPDATED ON PATIENT STATUS. ALL QUESTIONS AND CONCERNS ADDRESSED AT THIS TIME
[2019-04-13] MEDS: MIDAZOLAM DRIP 50 mg/50mL 50 ML IV SCH (18:13)
--- NOTE | 2019-04-13 19:08 | NUR ---
REPORT GIVEN TO EDWINA BOYLE TO ASSUME CARE
[2019-04-13] MEDS: NOREPINEPHRINE 8 MG/250ML KIT 250 ML IV SCH (21:23)
[2019-04-14] VITALS (96 sets, daily range): BP systolic 91–190; BP diastolic 53–117
[2019-04-14] MEDS: PIPERACILLIN-TAZOB 3.375GM 100 ML IV SCH ×4 (01:40→18:43)
[2019-04-14] MEDS: IPRATROPIUM BROM 0.5 MG/2.5ML INH SOL NEB SCH ×6 (01:56→22:25)
[2019-04-14] MEDS: ALBUTEROL SULF 2.5 MG/0.5ML(0.5%) NEB SOLN NEB SCH ×6 (01:56→22:25)
[2019-04-14] MEDS: VANCOMYCIN 750 MG in D5W 5% 250 ML IV SCH (02:00)
[2019-04-14] MEDS: ACETYLCYSTEINE 20%(200MG/ML) SOL 4ML NEB SCH ×6 (02:05→22:25)
[2019-04-14 03:54] LABS: Basophils # (auto) 0 uL; Eosinophils # (auto) 0.1 uL; Lymphocytes # (auto) 0.6 uL; Monocytes # (auto) 0.2 uL; Red Cell Distribution Width 13.8 % (11.8-14.3); White Blood Cell 5.1 10^3/uL (4.4-10.8)
[2019-04-14 03:57] LABS: Basophils % (auto) 0.1 % (0.0-2.0); Eosinophils % (auto) 1.8 % (0.0-7.0); Hematocrit 23.8 % (36.0-46.0); Hemoglobin 8.3 g/dL (12.2-16.2); Lymphocytes % (auto) 11.5 % (10.0-50.0); Mean Corpuscular Hemoglobin 32.9 pg (28.0-32.0); Monocytes % (auto) 3.7 % (0.0-12.0); Neutrophils # (auto) 4.2 uL; Neutrophils % (auto) 82.9 % (37.0-80.0); Platelet Count (auto) 363 10^3/uL (140-450); Red Blood Cells 2.53 10^6/uL (4.0-5.20)
[2019-04-14 04:17] LABS: Albumin 2.1 g/dL (3.4-5.0); Calcium 8.1 mg/dL (8.5-10.1)
[2019-04-14 04:21] LABS: BUN/Creatinine Ratio 17.5; Bilirubin, Total 0.5 mg/dL (0.2-1.0)
[2019-04-14 04:28] LABS: Potassium 2.9 mmol/L (3.5-5.1)
[2019-04-14] MEDS: InsuLIN REG 1unit/0.01ml Soln (100units/ml) SC SCH ×4 (05:44→18:00)
[2019-04-14] MEDS: ACCU-CHEK COMFORT CURVE STRIP VI SCH ×4 (05:45→18:00)
[2019-04-14] MEDS ORDERED: POTASSIUM CHLORIDE 40 MEQ, LIDOCAINE 1% (LOCAL ANESTH.) 4 ML in SODIUM CHL 0.9% 100 ML IV ONE (06:00)
[2019-04-14] MEDS ORDERED: POTASSIUM CHL 20MEQ/100ML 100 ML IV ONE ×2 (06:04→09:45)
[2019-04-14] MEDS: POTASSIUM CHL 20MEQ/100ML 100 ML IV SCH ×4 (06:18→20:00)
--- NOTE | 2019-04-14 07:30 | NUR ---
REPORT REPORT RECEIVED FROM JASMINA RNEDWINA. PT RESTING IN BED WITH EYES CLOSED, ON THE VENTILATOR AND SEDATED ON FENTANYL AT 100 MCG AND DIPRIVAN AT 25 MCG. CONTINUE TO MONITOR.
--- NOTE | 2019-04-14 07:58 | NUR ---
ASSESSMENT PT OPENS EYES TO NAME AND FOLLOWS SIMPLE COMMANDS. PUPILS 2 AND SLUGGISH. MOVES ALL EXTREMITIES. ON THE VENTILATOR WITH 8 FR ETT AND 22 AT THE LIP, TV 450, AC 18, 35% FIO2 AND PEEP OF 8. LUNGS CLEAR EXCEPT FOR INSPIRATORY CRACKLES IN THE UPPER LOBES. . SUCTIONED FOR SCANT CLEAR FLUID RETURNED. ORAL CARE PROVIDED. TELE SR WITH ST ELEVATION IN LEAD V. PALPABLE PULSES TO ALL EXTREMITIES. SCDS TO BLE. +2 EDEMA NOTED TO THE RIGHT HAND AND +1 TO THE LEFT. MITTENS ON BOTH HANDS TO PREVENT PULLING OUT ANY TUBES OR IVS. ABD SOFT WITH ACTIVE BOWEL SOUNDS. WOLFE CATHETER DRAINING CLEAR YELLOW URINE.
[2019-04-14] MEDS: ENSURE CLEAR Apple 8oz Carton PO SCH ×3 (08:00→18:00)
[2019-04-14] MEDS: DexMEDEtomidine 400 MCG in D5W 5% 96 ML IV SCH (09:10)
--- NOTE | 2019-04-14 09:10 | NUR ---
STARTED ON PRECEDEX DRIP AT 0.2 MCG/KG/HR. TURNED OFF PROPOFOL. CONTINUE TO MONITOR.
--- NOTE | 2019-04-14 09:41 | NUR ---
TITRATING UP ON PRECEDEX AND DOWN ON FENTANYL PT TOLERATES.
--- NOTE | 2019-04-14 09:43 | NUR ---
FAMILY PT'S SON CALLED AND AFTER VERIFYING PASSWORD, I ANSWERED HIS QUESTIONS AND UPDATED HIM ON HIS MOTHER'S CONDITION.
[2019-04-14] MEDS: AZITHROMYCIN 500MG/ 250ML 250 ML IV SCH (10:16)
[2019-04-14] MEDS: ENOXAPARIN SOD 40 MG/0.4 ML SYRINGE SC SCH (10:17)
[2019-04-14] MEDS: FAMOTIDINE (10MG/ML) 2ML VL IV SCH (10:17)
[2019-04-14] MEDS: BUDESONIDE (INHALATION) 0.5 MG/2 ML NEB NEB SCH ×2 (10:21→22:25)
[2019-04-14] MEDS: SODIUM FERR GLUC 62.5MG/5ML 125 MG in SODIUM CHL 0.9% 100 ML IV SCH (12:20)
[2019-04-14] MEDS: fentaNYL Drip 2500mCg/250mlNS 250 ML IV SCH (15:09)
[2019-04-14] MEDS: VANCOMYCIN 1GM/250ML 250 ML IV SCH (15:19)
[2019-04-14] MEDS: PROPOFOL 100 ML IV SCH (17:20)
[2019-04-14] MEDS ORDERED: FUROSEMIDE 40 MG/4 ML VIAL IV ONE (18:00)
[2019-04-14] MEDS: MIDAZOLAM DRIP 50 mg/50mL 50 ML IV SCH (18:13)
--- NOTE | 2019-04-14 18:15 | NUR ---
RT NOTE CPAP PER DR. GARCIA. PT AWAKE AND ALERT. PT NEEDS COACHING TO REMAIN CALM. PT KEEPS TRYING TO TALK TO FAMILY MEMBER WHICH IS CAUSING VALUES TO GO UP AND DOWN. PT LASTED [address] GARCIA STATED TO PLACE PT BACK ON AC MODE AND TO CPAP IN THE AM. FAMILY MEMBER (SON) AWARE THAT IT MIGHT BE BETTER FOR HIM TO WAIT UNTIL AFTER CPAP TOMORROW TO VISIT SO THAT PT ISN'T DISTRACTED DURING CPAP TRIAL. SON AGREED.
--- NOTE | 2019-04-14 19:30 | NUR ---
BEDSIDE REPORT GIVEN TO JASMINA RN, EDWINA. HAD 2 PORTS ON TLC STOP FLOWING AND EDWINA ABLE TO GET THEM FLOWING BUT I ALSO STARTED 2 NEW #20 IV TO THE LEFT HAND AND FOREARM.
[2019-04-14] MEDS: MIDAZOLAM HCL 1MG/1ML-2 ML VIAL IV PRN (21:12)
[2019-04-14] MEDS: NOREPINEPHRINE 8 MG/250ML KIT 250 ML IV SCH (21:23)
[2019-04-15] VITALS (96 sets, daily range): BP systolic 64–180; BP diastolic 22–111
[2019-04-15] MEDS: VANCOMYCIN 1GM/250ML 250 ML IV SCH ×2 (03:00→14:49)
[2019-04-15 04:02] LABS: Hemoglobin 8.6 g/dL (12.2-16.2); Mean Corpuscular Hemoglobin 32.5 pg (28.0-32.0); Mean Corpuscular Hgb Conc. 34.5 g/dL (32.0-36.0); Mean Corpuscular Volume 94.3 fL (80.0-100.0); Platelet Count (auto) 395 10^3/uL (140-450); Red Blood Cells 2.65 10^6/uL (4.0-5.20); Red Cell Distribution Width 13.9 % (11.8-14.3)
[2019-04-15 04:12] LABS: Potassium 3.3 mmol/L (3.5-5.1)
[2019-04-15 04:22] LABS: Albumin 2.2 g/dL (3.4-5.0); BUN/Creatinine Ratio 13.8; Bilirubin, Total 0.5 mg/dL (0.2-1.0); Total Protein 5.8 g/dL (6.4-8.2)
[2019-04-15 04:30] LABS: Band Neutrophils % (manual) 0; Basophils % (manual) 0 (0.0-2.0); Blast Cells 0; Eosinophils % (manual) 0 (0-7); Metamyelocytes % 0; Myelocytes % 0; Promyelocytes % 0; Reactive Lymphocytes 0
[2019-04-15] MEDS: InsuLIN REG 1unit/0.01ml Soln (100units/ml) SC SCH ×4 (06:00→18:30)
[2019-04-15] MEDS: PIPERACILLIN-TAZOB 3.375GM 100 ML IV SCH ×4 (06:03→18:42)
[2019-04-15] MEDS: ACCU-CHEK COMFORT CURVE STRIP VI SCH ×4 (06:04→18:35)
[2019-04-15 06:06] LABS: Lymphocytes % (manual) 17 (10.0-50.0); Monocytes % (manual) 6 (0-12)
[2019-04-15] MEDS: ACETYLCYSTEINE 20%(200MG/ML) SOL 4ML NEB SCH ×5 (06:45→22:16)
[2019-04-15] MEDS: IPRATROPIUM BROM 0.5 MG/2.5ML INH SOL NEB SCH ×5 (06:45→22:16)
[2019-04-15] MEDS: ALBUTEROL SULF 2.5 MG/0.5ML(0.5%) NEB SOLN NEB SCH ×5 (06:45→22:16)
--- NOTE | 2019-04-15 06:49 | NUR ---
Respiratory note: RECEIVED PATIENT ON V18 CARESCAPE VENT ORALLY INTUBATED WITH AN 8.0 ETT SECURED VIA NEVAEH AT THE 22CM MARKING AT THE LIP, AND MECHANICALLY VENTILATED WITH THE CHARTED SETTINGS. SPO2 99%, LUNG SOUNDS DIM T/O, SCANT AMOUNT OF THICK BAIG SECRETIONS WHEN SUCTIONED. SKIN IS WARM/DRY TO THE TOUCH AND IS INTACT NEAR NEVAEH SITE. THERE IS A NGT PLACED IN THE RIGHT NARE AND SECURED TO THE ETT, PITTING EDEMA NOTED THROUGHOUT ALL EXTREMITIES. UNABLE TO VIEW AM CXR AT THIS TIME. PATIENT IS SEDATED ON PROPOFOL AND FENTANYL DRIPS, AND IS UNREPONSIVE TO BOTH VERBAL/TACTILE STIMULI; SHE IS RESTING COMFORTABLY AND TOLERATING VENT WELL, NO CHANGES MADE. VENT PLUGGED INTO RED OUTLET AND ALL ALARMS ARE SET AND AUDIBLE. WILL CONTINUE TO ASSESS PATIENT WELL VENTILATOR FUNCTION. [employer] RUN INLINE.
--- NOTE | 2019-04-15 07:30 | NUR ---
REPORT REPORT RECEIVED FROM JASMINA RNEDWINA. BEDSIDE CHECK DONE . REMAINS SEDATED WHILE ON THE VENTILATOR. ORDERS FOR CPAP THIS AM.
[2019-04-15] MEDS: fentaNYL Drip 2500mCg/250mlNS 250 ML IV SCH ×3 (07:36→19:45)
[2019-04-15] MEDS: DexMEDEtomidine 400 MCG in D5W 5% 96 ML IV SCH (07:36)
[2019-04-15] MEDS: ENSURE CLEAR Apple 8oz Carton PO SCH ×3 (07:37→18:00)
[2019-04-15] MEDS: PROPOFOL 100 ML IV SCH ×3 (09:11→21:17)
--- NOTE | 2019-04-15 09:13 | NUR ---
Respiratory note: PATIENT PLACED ON SBT FOR WEANING AT THIS TIME PER DR. GARCIA'S ORDER. PATIENT IS TOLERATING MODE CHANGE WELL, IS CALM, AND RELAXED. TAMAR POSADAS AT BEDSIDE AND AWARE OF START OF SBT. WILL CONTINUE TO MONITOR PATIENT CLOSELY.
[2019-04-15] MEDS: POTASSIUM CHL 20MEQ/100ML 100 ML IV SCH ×3 (09:26→14:05)
[2019-04-15] MEDS: BUDESONIDE (INHALATION) 0.5 MG/2 ML NEB NEB SCH ×2 (10:00→18:23)
--- NOTE | 2019-04-15 10:45 | NUR ---
Respiratory note: PATIENT FAILED CPAP AND WAS PLACED BACK ON ALL PREVIOUSLY ORDERED SETTINGS PER DR. GARCIA'S REQUEST. TAMAR POSADAS MADE AWARE OF VENT MODE CHANGE BACK TO AC SETTINGS.
[2019-04-15] MEDS: FAMOTIDINE (10MG/ML) 2ML VL IV SCH (11:12)
[2019-04-15] MEDS: ENOXAPARIN SOD 40 MG/0.4 ML SYRINGE SC SCH (11:12)
[2019-04-15] MEDS: AZITHROMYCIN 500MG/ 250ML 250 ML IV SCH (11:13)
--- NOTE | 2019-04-15 11:31 | NUR ---
Respiratory note: ALL 1000 MED-NEB TX 'S HELD FOR SBT. RN CUAUHTEMOC AWARE OF NON ADMINISTRATION.
--- NOTE | 2019-04-15 11:40 | NUR ---
SPOKE WITH PT'S SON IN THE LOBBY AND UPDATED HIM ON THE PT'S CURRENT CONDITION AND CPAP FAILURE DUE TO ELEVATED CO2 LEVEL. SON THEN INTO THE ROOM TO SEE THE PT. Addendum: 04/15/19 at 1149 by Fely Gutiérrez RN ACCUCHECK OF 96, NO COVERAGE NEEDED.
[2019-04-15] MEDS: SODIUM FERR GLUC 62.5MG/5ML 125 MG in SODIUM CHL 0.9% 100 ML IV SCH (13:30)
--- NOTE | 2019-04-15 15:46 | NUR ---
Nutrition Follow-up Notes Wt.: 83.2 kg today. Pt's intubated, currently sedated with Propofol @ 13.01 ml/hr providing 343 kcal from Fat. Pt's NPO with EN support temporarily held this morning for CPAP trial. Noted pt's failed CPAP trial earlier, with previous order for Jevity 1.2 Gregory @ 40 ml/hr providing 1152 kcal, 53 gms pro and 775 ml free water. Est. Needs: 1650 kcal to 2050 kcal (20-25 kcal/kgBW), 66 gms to 83 gms pro (0.8-1.0 gms/kgBW). Will continue to monitor pertinent labs and reassess nutrient need prn Labs: K 3.3 L, Ca 8.0 L, Tpro 5.8 L, Alb 2.2 L. Skin: Bj scale 15, mod risk, skin intact per neurological surgeon. GI: Pt had 1 BM on 04/07/19 per neurological surgeon. PES: Altered nutrition related lab values r/t acute/chronic medical condition aeb hyperglycemia, hypokalemia, elev. renal labs, hyperbilirubinemia and severe hypoalbuminemia Increase nutrient needs r/t current medical condition aeb intubated, sedated, mod hypoalbuminemia, NPO with EN support. Will continue to monitor NPO status, skin status, pertinent labs and weight trend. F/u in 2 to 3 days. Rec.: 1.) If still NPO, consider to resume EN support of Jevity 1.2 Gregory @ 50 ml/hr goal rate as tolerated while on current rate of Propofol. 2.) If Albumin level continues trending down with improved renal labs, consider Prostat 1 pkt BID. 3.) Advance gradually to oral diet when medically appropriate 4.) Refer to CDE/RD for further nutrition education and weight monitoring upon discharged. 5.) Continue current plan of care.
[2019-04-15] MEDS: MIDAZOLAM DRIP 50 mg/50mL 50 ML IV SCH (18:13)
--- NOTE | 2019-04-15 18:30 | NUR ---
TURNED PT FOR COMFORT. LUNGS VERY COARSE. NOTIFIED DR GARCIA WHO IS HERE IN THE ICU . NO ORDERS RECEIVED.
--- NOTE | 2019-04-15 19:30 | NUR ---
REPORT REPORT GIVEN TO SMITH FREEDMAN RN.
--- NOTE | 2019-04-15 19:30 | NUR ---
ASSESSMENT; PT. ALERT AND ORIENTED TO NAME, FOLLOWS COMMANDS, COOPERATIVE. ON PROPOFOL AND FENTANYL PER PHYSICIAN REQUESTS. PT. REMAINS VENTILATED ON AC/18, TV - 450, PEEP +8, FIO2 30. PARVEEN 98%. LUNGS CLEAR BILATERALLY WITH THICK, GREEN MOD. AMT. OF SECRETION WHEN ETT SUCTION DONE. STRONG COUGH, (+) GAG. CARDIAC - HR 70'S, NO ECTOPY, SBP 110'S, NO PRESSORS. G.I - OGT - JEVITY AT 40CC/HR, 5 CC RESIDUAL, BOWEL SOUNDS - HYPOACTIVE. DIARRHEA STOOL, LIQUID BROWN. MIKE RECTAL AREA PINK, OINTMENT APPLIED. WOLFE - CLEAR YELLOW URINE, MIKE CARE PROVIDED. ORAL CARE DONE, REPOSITIONED LEFT.
[2019-04-15] MEDS ORDERED: FUROSEMIDE 40 MG/4 ML VIAL IV SCH (19:45)
[2019-04-15] MEDS ORDERED: POTASSIUM CHL 20MEQ/100ML 100 ML IV SCH (19:45)
[2019-04-15] MEDS: NOREPINEPHRINE 8 MG/250ML KIT 250 ML IV SCH (21:23)
[2019-04-16] VITALS (70 sets, daily range): BP systolic 94–190; BP diastolic 55–123
[2019-04-16] MEDS: PIPERACILLIN-TAZOB 3.375GM 100 ML IV SCH ×4 (00:58→17:53)
[2019-04-16] MEDS: InsuLIN REG 1unit/0.01ml Soln (100units/ml) SC SCH ×4 (01:00→17:45)
[2019-04-16] MEDS: PROPOFOL 100 ML IV SCH (02:50)
[2019-04-16 02:59] LABS: Basophils # (auto) 0 uL; Basophils % (auto) 0.2 % (0.0-2.0); Eosinophils # (auto) 0.1 uL; Eosinophils % (auto) 2.2 % (0.0-7.0); Hemoglobin 8.9 g/dL (12.2-16.2); Lymphocytes # (auto) 0.8 uL; Mean Corpuscular Hemoglobin 32.3 pg (28.0-32.0); Monocytes # (auto) 0.6 uL; Monocytes % (auto) 9.3 % (0.0-12.0); Neutrophils # (auto) 4.7 uL; Neutrophils % (auto) 75.3 % (37.0-80.0); Platelet Count (auto) 384 10^3/uL (140-450); Red Blood Cells 2.74 10^6/uL (4.0-5.20); Red Cell Distribution Width 13.8 % (11.8-14.3); White Blood Cell 6.2 10^3/uL (4.4-10.8)
[2019-04-16] MEDS: VANCOMYCIN 1GM/250ML 250 ML IV SCH ×2 (03:00→14:49)
[2019-04-16 03:04] LABS: Chloride 107 mmol/L (98-107); Potassium 3.7 mmol/L (3.5-5.1); Sodium 145 mmol/L (136-145)
[2019-04-16 03:10] LABS: Anion Gap 10 (5-15); BUN/Creatinine Ratio 11.7; Blood Urea Nitrogen 9 mg/dL (7-18); Calcium 8.3 mg/dL (8.5-10.1); Carbon Dioxide 28 mmol/L (21-32); GFR African American 99 mL/min; GFR Non-African American 82 mL/min; Glucose 94 mg/dL (74-106)
[2019-04-16] MEDS: ACCU-CHEK COMFORT CURVE STRIP VI SCH ×4 (05:51→17:44)
[2019-04-16] MEDS: ACETYLCYSTEINE 20%(200MG/ML) SOL 4ML NEB SCH ×5 (06:08→22:06)
[2019-04-16] MEDS: ALBUTEROL SULF 2.5 MG/0.5ML(0.5%) NEB SOLN NEB SCH ×5 (06:08→22:05)
[2019-04-16] MEDS: IPRATROPIUM BROM 0.5 MG/2.5ML INH SOL NEB SCH ×5 (06:08→22:05)
[2019-04-16] MEDS: DexMEDEtomidine 400 MCG in D5W 5% 96 ML IV SCH (07:48)
[2019-04-16] MEDS: ENSURE CLEAR Apple 8oz Carton PO SCH ×3 (07:49→17:54)
[2019-04-16] MEDS ORDERED: fentaNYL Drip 2500mCg/250mlNS 250 ML IV ONE (07:56)
[2019-04-16] MEDS: fentaNYL Drip 2500mCg/250mlNS 250 ML IV SCH (07:57)
--- NOTE | 2019-04-16 08:00 | NUR ---
PATIENT HAD A SMALL BM. PATIENT CLEANED AND TURNED.
--- NOTE | 2019-04-16 08:30 | NUR ---
CALL FROM DR. GARCIA, NEW ORDERS TO EXTUBATE AND PUT PATIENT DIRECTLY ONTO BIPAP /, ABG 30 MINUTES AFTER EXTUBATED. SEE EMR FOR NEW ORDERS.
[2019-04-16] MEDS ORDERED: EPINEPHrine HCL 0.5 ML NEB NEB ONE (08:45)
--- NOTE | 2019-04-16 08:55 | NUR ---
PATIENT EXTUBATED AND PUT ON BIPAP. NO STRIDOR HEARD, RESPIRATIONS EVEN AN UNLABORED AT THIS TIME. WILL CONTINUE TO MONITOR.
[2019-04-16] MEDS: ENOXAPARIN SOD 40 MG/0.4 ML SYRINGE SC SCH (09:35)
[2019-04-16] MEDS: AZITHROMYCIN 500MG/ 250ML 250 ML IV SCH (09:35)
[2019-04-16] MEDS: FAMOTIDINE (10MG/ML) 2ML VL IV SCH (09:35)
[2019-04-16] MEDS: BUDESONIDE (INHALATION) 0.5 MG/2 ML NEB NEB SCH ×2 (10:49→22:05)
--- NOTE | 2019-04-16 11:00 | NUR ---
WOUND CARE NOTE: PATIENT IS BEING MONITORED FOR SKIN INTEGRITY D/T LOW ABBY SCORES. CURRENTLY, PATIENT HAS BEEN EXTUBATED, SHE IS ON BIPAP. CURRENT ABBY SCORE IS 17. PATIENT IS ABLE TO SELF TURN/REPOSITION SELF AT THIS TIME. SHE CONTINUES TO HAVE NO WOUNDS. SHE IS HAVING MANY LOOSE STOOLS, AND HAS MILD MASD WITH ERYTHEMA TO THE PERIANAL AREA. RECOMMEND: CHANGE FROM MOISTURE BARRIER CREAM TO CAVILON NO STING BARRIER FILM ON PERIANAL, PERINEAL SKIN, CONTINUATION WITH ALL OTHER WOUND CARE ORDERS PREVIOUSLY PRESCRIBED BY MD. WOUND CARE TEAM WILL CONTINUE TO MONITOR.
[2019-04-16] MEDS: MORPHINE SULF INJ 2 MG/ML SYRINGE 1ML IV PRN ×3 (11:07→19:57)
[2019-04-16] MEDS: hydrALAZINE HCL 20 MG/ML VL IV PRN ×2 (11:50→18:59)
[2019-04-16] MEDS: ONDANSETRON HCL 4 MG/2 ML VIAL IV PRN (12:31)
--- NOTE | 2019-04-16 12:31 | NUR ---
NAUSEA PATIENT COMPLAINING OF NAUSEA - CURRENTLY ON BIPAP. BIPAP REMOVED AND PATIENT DRY HEAVING NOT VOMITING AT THIS TIME. PATIENT MEDICATED ORDERED BY PHYSICIAN.
--- NOTE | 2019-04-16 13:44 | NUR ---
PT TAKEN OFF BIPAP AND PLACED ON 2L NC. NO RESPIRATORY DISTRESS NOTED. RN AT BESIDE.
--- NOTE | 2019-04-16 13:52 | NUR ---
SWALLOW EVALUATED WITH NURSING PRESENT. PATIENT HAS OWN TEETH. ABLE TO FOLLOW DIRECTIONS. PATIENT TOLERATED TRIAL OF REGULAR TEXTURE WITH THIN LIQUIDS WITH NO OVERT SIGNS OR SYMPTOMS OF ASPIRATION.
[2019-04-16] MEDS: SODIUM FERR GLUC 62.5MG/5ML 125 MG in SODIUM CHL 0.9% 100 ML IV SCH (13:55)
[2019-04-16] MEDS: ALPRAZolam 0.25 MG TAB PO PRN (14:23)
[2019-04-16] MEDS ORDERED: METOPROLOL TARTRATE 1MG/1ML-5ML VIAL IV ONE ×2 (14:45→17:45)
[2019-04-16] MEDS: MIDAZOLAM DRIP 50 mg/50mL 50 ML IV SCH (17:44)
[2019-04-16] MEDS: HYDROcodone-ACET 5/325MG TAB PO PRN (19:19)
--- NOTE | 2019-04-16 19:30 | NUR ---
CARE ASSUMED. ASSESSMENT: ALERT AND ORIENTED, EXTUBATED ON 2L/NC, SATS 90%, COUGH NON PRODUCTIVE. LUNG DIMINISHED AT BASES. TEMP 98.4. INSTRUCTED ON I.S USE AND RETURN DEMONSTRATIONS 500CC X10. DISCUSSED THE NEED TO EXERCISE Q2HR WHILE AWAKE, AGREES. C/O BACK PAIN AND REQUEST PAIN MEDICATION, INFORMED THAT NORCO WILL BE PROVIDED, STATES SHE WANTS MORPHINE, INFORMED IT WILL BE PROVIDED WHEN DUE, AGREES. ABDOMEN - SOFT, (+) B.S. NO BM TONIGHT. WOLFE CATH - CLEAR, YELLOW URINE. IV'S CENTRAL LINE TO RIGHT IJ INTACT. IV SITE X2 INTACT.
[2019-04-16] MEDS: NOREPINEPHRINE 8 MG/250ML KIT 250 ML IV SCH (21:23)
[2019-04-17] VITALS (36 sets, daily range): BP systolic 113–170; BP diastolic 47–112
[2019-04-17] MEDS: PIPERACILLIN-TAZOB 3.375GM 100 ML IV SCH ×3 (00:01→12:44)
[2019-04-17] MEDS: VANCOMYCIN 1GM/250ML 250 ML IV SCH ×2 (03:35→15:11)
[2019-04-17] MEDS: ACETYLCYSTEINE 20%(200MG/ML) SOL 4ML NEB SCH ×3 (06:00→14:25)
[2019-04-17] MEDS: BUDESONIDE (INHALATION) 0.5 MG/2 ML NEB NEB SCH ×2 (06:00→22:00)
[2019-04-17] MEDS: IPRATROPIUM BROM 0.5 MG/2.5ML INH SOL NEB SCH ×5 (06:00→22:00)
[2019-04-17] MEDS: ALBUTEROL SULF 2.5 MG/0.5ML(0.5%) NEB SOLN NEB SCH ×5 (06:00→22:00)
[2019-04-17] MEDS: DexMEDEtomidine 400 MCG in D5W 5% 96 ML IV SCH (06:56)
[2019-04-17] MEDS: ENSURE CLEAR Apple 8oz Carton PO SCH ×3 (08:17→20:00)
[2019-04-17] MEDS: MORPHINE SULF INJ 2 MG/ML SYRINGE 1ML IV PRN ×2 (08:49→18:04)
[2019-04-17] MEDS: AZITHROMYCIN 500MG/ 250ML 250 ML IV SCH (09:32)
[2019-04-17] MEDS: ENOXAPARIN SOD 40 MG/0.4 ML SYRINGE SC SCH (09:32)
[2019-04-17] MEDS: FAMOTIDINE (10MG/ML) 2ML VL IV SCH (09:32)
[2019-04-17] MEDS: ALPRAZolam 0.25 MG TAB PO PRN (10:41)
[2019-04-17] MEDS: SODIUM FERR GLUC 62.5MG/5ML 125 MG in SODIUM CHL 0.9% 100 ML IV SCH (12:55)
[2019-04-17] MEDS ORDERED: METOPROLOL TARTRATE 1MG/1ML-5ML VIAL IV ONE (13:15)
[2019-04-17] MEDS ORDERED: LISINOPRIL 20 MG TAB PO ONE (13:15)
[2019-04-17] MEDS: methylPREDNISolone SOD SUCC 40 MG/ML VL IV SCH ×2 (14:06→22:15)
[2019-04-17] MEDS ORDERED: FUROSEMIDE 40 MG/4 ML VIAL IV ONE (15:30)
--- NOTE | 2019-04-17 17:05 | NUR ---
Admit to [facility] admitted to [facility] on media center director school, and portable 02. Patient AMBULATED to bed WITH MODERATE ASSIST, connected to unit monitoring and oxygen, and weighed by bedscale. PATIENT ALERT AND ORIENTED X4. VSS AND DOCUMENTED RESPIRATIONS ARE EVEN AND UNLABORED. Patient oriented to Glenny Rodriguez, primary RN, AND STUDENT RN TROY Justin, unit, room, bed, and unit policies regarding patient care and visiting hours. FALL AND SAFETY PRECAUTIONS APPLIED. All questions and concerns addressed, patient verbalized understanding.
--- NOTE | 2019-04-17 17:18 | NUR ---
ICU patient trans to [facility]OO[facility] ZIMMERMAN transferred to 262 via WHEEL CHAIR on teletypesetter monitor and portable 02. All patient medications and personal belongings transferred with patient to receiving floor. Patient care transferred to JAQUAN BOYLE.
--- NOTE | 2019-04-17 18:00 | NUR ---
I.S. EDUCATION PATIENT EDUCATED ON NEED AND USE OF INCENTIVE SPIROMETER. RETURN DEMONSTRATION PROVIDED AND PATIENT MEASURED [phone] MLS.
--- NOTE | 2019-04-17 19:15 | NUR ---
OPENING SHIFT RECEIVED REPORT FROM DAY SHIFT RN. ASSUMED CARE OF PATIENT. PATIENT IN BED WITH NO SIGNS OR SYMPTOMS OF SOB, PAIN OR DISTRESS. CURRENTLY ON 4L 02 NASAL CANNULA, 02 SAT - 93%. RIGHT INTRAJUGULAR X3, LEFT WRIST AND LEFT FOREARM IV - CLEAN/DRY/INTACT. WOLFE HUNG TO GRAVITY ON BED RAIL. UPDATED PATIENT ON PLAN OF CARE. INCENTIVE SPIROMETER AT BEDSIDE. REPOSITIONED FOR COMFORT. BED IN LOWEST POSITION, SIDE RAILS UP X2, CALL LIGHT WITHIN REACH. WILL CONTINUE TO MONITOR.
--- NOTE | 2019-04-17 19:18 | NUR ---
END OF SHIFT PATIENT RESTING SUPINE IN BED WATCHING TV. HEART RATE IS 101 SINUS TACHY. STATING 94-99% FIO2 ON 4L NASAL CANNULA. INCENTIVE SPIROMETER AT BEDSIDE, PATIENT MAX TV 900. VVS. NO SIGNS OF DISTRESS NOTED. REPORT GIVEN TO KENDRA MEEKS RN.
--- NOTE | 2019-04-17 19:40 | NUR ---
PM CARE PATIENT PERFORMED PARTIAL BED BATH WITH WASH CLOTHS TO THE FACE AND MIKE AREA. REFUSED LINEN CHANGE AND GOWN CHANGE AT THIS TIME. REPOSITIONED FOR COMFORT. BED IN LOWEST POSITION, SIDE RAILS UP X2, CALL LIGHT WITHIN REACH. WILL CONTINUE TO MONITOR.
[2019-04-17] MEDS: METOPROLOL TARTRATE 25 MG TAB PO SCH (22:15)
--- NOTE | 2019-04-17 23:40 | NUR ---
PATIENT REQUESTING TO BE DNR. DISCUSSED AND EXPLAINED ALTERNATIVE DNR OPTIONS. PATIENT UNDERSTANDS WHAT WAS DISCUSSED AND WANTS TO BE COMPLETE DNR.
[2019-04-18] VITALS: BP 135/88
--- NOTE | 2019-04-18 00:47 | NUR ---
ROUNDS PATIENT IN BED WATCHING TV WITH NO SIGNS OR SYMPTOMS OF SOB, PAIN OR DISTRESS. CURRENTLY ON 4L 02 NASAL CANNULA, 02 SAT - 96%. REPOSITIONED FOR COMFORT. AIDEN HUNG TO GRAVITY ON BED RAIL. BED IN LOWEST POSITION, SIDE RAILS UP X2, CALL LIGHT WITHIN REACH. WILL CONTINUE TO MONITOR.
[2019-04-18] MEDS: VANCOMYCIN 1GM/250ML 250 ML IV SCH ×2 (03:07→16:41)
[2019-04-18 04:00] VITALS: BP 119/62
--- NOTE | 2019-04-18 04:15 | NUR ---
ROUNDS PATIENT IN BED SLEEPING WITH NO SIGNS OR SYMPTOMS OF SOB, PAIN OR DISTRESS. REPOSITIONED FOR COMFORT. BED IN LOWEST POSITION, SIDE RAILS UP X2, CALL LIGHT WITHIN REACH. WILL CONTINUE TO MONITOR.
[2019-04-18] MEDS: methylPREDNISolone SOD SUCC 40 MG/ML VL IV SCH ×3 (05:59→22:29)
[2019-04-18] MEDS: ALBUTEROL SULF 2.5 MG/0.5ML(0.5%) NEB SOLN NEB SCH ×5 (06:00→22:26)
[2019-04-18] MEDS: IPRATROPIUM BROM 0.5 MG/2.5ML INH SOL NEB SCH ×5 (06:00→22:26)
[2019-04-18 06:22] LABS: BUN/Creatinine Ratio 10.5; Calcium 8.8 mg/dL (8.5-10.1); Magnesium 2.5 mg/dL (1.6-2.6); Phosphorus 2.8 mg/dL (2.5-4.90); Potassium 3.6 mmol/L (3.5-5.1)
--- NOTE | 2019-04-18 06:35 | NUR ---
END OF SHIFT PATIENT IN BED SLEEPING WITH NO SIGNS OR SYMPTOMS OF SOB, PAIN OR DISTRESS. CURRENTLY ON 4L 02 NASAL CANNULA, 02 SAT - 96%. REPOSITIONED FOR COMFORT. RIGHT INTRAJUGULAR X3, LEFT HAND AND LEFT FOREARM IV - CLEAN/DRY/INTACT. WOLFE HUNG TO GRAVITY ON BED RAIL. BED IN LOWEST POSITION, SIDE RAILS UP X2, CALL LIGHT WITHIN REACH. WILL ENDORSE CARE TO DAY SHIFT RN.
[2019-04-18 08:00] VITALS: BP 134/78
[2019-04-18] MEDS: ENSURE CLEAR Apple 8oz Carton PO SCH ×3 (08:00→18:00)
--- NOTE | 2019-04-18 08:00 | NUR ---
Opening Shift Note Assumed care of patient, awake and alert. Patient on the monitor, VS WNL. Patient A&Ox4. Patient on 4L NC saturation at 94%. Reynolds to gravity. Right IJ triple lumen, left wrist 20G, and left forearm 20G saline locked, all IV's patent, clean, dry, and intact. Bed locked and in the lowest position, side rails up x2, call light with in reach. No S/S of distress/SOB or pain. Instructed on POC and to call for assist PRN. Will continue to monitor.
--- NOTE | 2019-04-18 08:30 | NUR ---
Patient sitting up in bed eating breakfast independently. Will continue to monitor.
--- NOTE | 2019-04-18 09:00 | NUR ---
PT at bedside.
[2019-04-18] MEDS: BUDESONIDE (INHALATION) 0.5 MG/2 ML NEB NEB SCH ×2 (09:52→17:55)
[2019-04-18] MEDS ORDERED: FUROSEMIDE 40 MG/4 ML VIAL IV ONE (10:00)
--- NOTE | 2019-04-18 10:30 | NUR ---
Dr. Avina at bedside.
--- NOTE | 2019-04-18 10:30 | NUR ---
Medication dosages, usages, and side effects explained to patient. Patient verbalized understanding. Will continue to monitor.
[2019-04-18] MEDS: ENOXAPARIN SOD 40 MG/0.4 ML SYRINGE SC SCH (10:33)
[2019-04-18] MEDS: FAMOTIDINE (10MG/ML) 2ML VL IV SCH (10:39)
[2019-04-18] MEDS: LISINOPRIL 20 MG TAB PO SCH (10:40)
[2019-04-18] MEDS: METOPROLOL TARTRATE 25 MG TAB PO SCH ×2 (10:40→22:31)
[2019-04-18] MEDS: AZITHROMYCIN 500MG/ 250ML 250 ML IV SCH (10:40)
[2019-04-18 12:00] VITALS: BP 123/46
--- NOTE | 2019-04-18 12:08 | NUR ---
Nutrition Follow-up Notes Wt.: 78.8 kg Pt's successfully extubated sleeping with no family by bedside. per records pt with resolved sepsis on ABX. no distress noted per nursing. pt is currently on CCHO 60 gm/meal diet with inadequate PO of 50% x 2 per RN doc. Est. Needs: 1650 kcal to 2050 kcal (20-25 kcal/kgBW), 66 gms to 83 gms pro (0.8-1.0 gms/kgBW). Will continue to monitor pertinent labs and reassess nutrient need prn Labs: GLU 128 H, rest lab wnl for today Skin: Bj scale 16, mod risk, skin intact per drosser. GI: Pt had 4 BM on 04/16 per drosser. PES: Altered nutrition related lab values r/t acute/chronic medical condition aeb hyperglycemia, hypokalemia, elev. renal labs, hyperbilirubinemia and severe hypoalbuminemia Increase nutrient needs r/t current medical condition aeb intubated, sedated, mod hypoalbuminemia, NPO with EN support. Will continue to monitor PO intake, skin status, pertinent labs and weight trend. F/u in 3-5 days. Rec.: 1.) Consider regular diet if blood glu wnl. 2.) If Albumin level continues trending down with improved renal labs, consider Prostat 1 pkt BID. 3.) Refer to CDE/RD for further nutrition education and weight monitoring upon discharged. 4.) Continue current plan of care.
--- NOTE | 2019-04-18 12:18 | NUR ---
PT Patient had nausea and became light headed during attempt to get OOB and while sitting at EOB. Patient went back to bed ghassan. Addendum: 04/18/19 at 1220 by ADRI JOHN PTT Amended: Links added.
--- NOTE | 2019-04-18 12:45 | NUR ---
Patient sitting up in bed eating Lunch independently. Will continue to monitor.
--- NOTE | 2019-04-18 14:00 | NUR ---
Patient resting at this time. No S/S of SOB/pain or distress noted. Will continue to monitor.
[2019-04-18] MEDS: SODIUM FERR GLUC 62.5MG/5ML 125 MG in SODIUM CHL 0.9% 100 ML IV SCH (15:00)
--- NOTE | 2019-04-18 15:00 | NUR ---
PT assisted patient to bedside chair. Patient tolerating. Will continue to monitor.
--- NOTE | 2019-04-18 15:45 | NUR ---
Patient back in bed and resting now. No S/S of SOB/pain or distress noted. Will continue to monitor.
[2019-04-18 16:00] VITALS: BP 134/79
--- NOTE | 2019-04-18 17:00 | NUR ---
Patient resting at this time. No S/S of SOB/pain or distress noted. Will continue to monitor.
--- NOTE | 2019-04-18 18:48 | NUR ---
End of shift note: Patient sitting up in bed eating dinner. Patient on the monitor, VS WNL. Patient A&Ox4. Patient on 4L NC saturation at 95%. Reynolds to gravity. Right IJ triple lumen, left wrist 20G, and left forearm 20G saline locked, all IV's patent, clean, dry, and intact. Bed locked and in the lowest position, side rails up x2, call light with in reach. No S/S of distress/SOB or pain. Report to be given to mini shifter RN. Will continue to monitor.
[2019-04-18 20:00] VITALS: BP 117/70
[2019-04-18] MEDS: ALPRAZolam 0.25 MG TAB PO PRN (23:05)
[2019-04-19] VITALS: BP 141/77
[2019-04-19] MEDS: VANCOMYCIN 1GM/250ML 250 ML IV SCH (03:05)
[2019-04-19 04:15] VITALS: BP 128/74
--- NOTE | 2019-04-19 07:30 | NUR ---
RECEIVED PATIENT LYING IN BED A/O TIMES 4, O2 BY R/A, SALINE LOCK TO THE 22G LEFT HAND 20G TO THE LEFT WRIST AND TLC TO THE RIJ ALL FLUSHED AND PATENT, WOLFE TO GRAVITY, DENIES PAIN AND SOB,
[2019-04-19] MEDS: methylPREDNISolone SOD SUCC 40 MG/ML VL IV SCH ×2 (07:47→14:18)
[2019-04-19 08:00] VITALS: BP 124/77
[2019-04-19] MEDS: ENSURE CLEAR Apple 8oz Carton PO SCH ×2 (08:00→11:56)
[2019-04-19] MEDS: IPRATROPIUM BROM 0.5 MG/2.5ML INH SOL NEB SCH ×4 (08:09→18:14)
[2019-04-19] MEDS: BUDESONIDE (INHALATION) 0.5 MG/2 ML NEB NEB SCH (08:10)
[2019-04-19] MEDS: ALBUTEROL SULF 2.5 MG/0.5ML(0.5%) NEB SOLN NEB SCH ×4 (08:10→18:14)
--- NOTE | 2019-04-19 08:30 | NUR ---
SAT UP IN BED AND ATE VERY LITTLE OF HER BREAKFAST, STATES SHE DOESN'T LIKE IT
--- NOTE | 2019-04-19 09:15 | NUR ---
UP TO THE BR AND HAD A BM
--- NOTE | 2019-04-19 09:30 | NUR ---
PLACED O2 AT 2L TO THE PATIENT BECAUSE O2 SAT DROPPED TO THE 87% WHEN LYING IN THE BED ON R/A
[2019-04-19] MEDS: FAMOTIDINE (10MG/ML) 2ML VL IV SCH (10:23)
[2019-04-19] MEDS: ENOXAPARIN SOD 40 MG/0.4 ML SYRINGE SC SCH (10:23)
[2019-04-19 10:24] LABS: Basophils # (auto) 0 uL; Eosinophils # (auto) 0 uL; Hemoglobin 11.4 g/dL (12.2-16.2); Lymphocytes # (auto) 1.4 uL; Lymphocytes % (auto) 8.6 % (10.0-50.0)
[2019-04-19] MEDS: METOPROLOL TARTRATE 25 MG TAB PO SCH (10:24)
--- NOTE | 2019-04-19 10:25 | NUR ---
EXPLAIN MEDICATIONS TO THE PATIENT REGARDING THE DOSAGE, USAGE AND THE SIDE EFFECTS, VERBALIZED THAT THEY UNDERSTOOD AND MEDS GIVEN ORDERED
[2019-04-19 10:26] LABS: Basophils % (auto) 0.2 % (0.0-2.0); Hematocrit 33.4 % (36.0-46.0); Mean Corpuscular Hemoglobin 31.8 pg (28.0-32.0); Mean Corpuscular Hgb Conc. 34.1 g/dL (32.0-36.0); Mean Corpuscular Volume 93.2 fL (80.0-100.0); Monocytes # (auto) 0.6 uL; Neutrophils # (auto) 13.7 uL; Neutrophils % (auto) 87.2 % (37.0-80.0); Platelet Count (auto) 550 10^3/uL (140-450); Red Blood Cells 3.58 10^6/uL (4.0-5.20); Red Cell Distribution Width 13.8 % (11.8-14.3); White Blood Cell 15.8 10^3/uL (4.4-10.8)
--- NOTE | 2019-04-19 11:00 | NUR ---
WALKED WITH PT IN THE UNIT, O2 SAT 85% WHEN COMING BACK TO THE ROOM
[2019-04-19] MEDS: LISINOPRIL 20 MG TAB PO SCH (11:59)
[2019-04-19 12:00] VITALS: BP 144/89
--- NOTE | 2019-04-19 12:00 | NUR ---
SITTING UP IN BED TALKING ON THE PHONE
--- NOTE | 2019-04-19 12:28 | NUR ---
WALKING TO THE BATHROOM NO HELP NEEDED
--- NOTE | 2019-04-19 12:43 | NUR ---
DR MARTINEZ IN TO SEE THE PATIENT AND ORDERING ABG AND HOME HEALTH, AND HOME O2 IF NEED
--- NOTE | 2019-04-19 12:45 | NUR ---
PATIETN GOING TO BE DISCHARGED TODAY
--- NOTE | 2019-04-19 13:20 | NUR ---
FRIEND IN TO VISIT WITH THE PATIENT
--- NOTE | 2019-04-19 14:13 | NUR ---
ATTEMPTED TO OBTAIN ABG FOR THE SECOND TIME. PT. MOVED ARM AND STATED IT WAS TOO PAINFUL. REMOVED NEEDLE FROM PT'S ARM AND HELD PRESSURE. PT. REFUSES TO HAVE ABG DONE AT THIS TIME. CURRENT SPO2 IS 95% ON RA.
--- NOTE | 2019-04-19 14:30 | NUR ---
WALKED PATIENT IN THE UNIT ON R/A AND WILL DO ABG AFTER TO SEE IF PATIENT QUALIFIES FOR HOME 02
--- NOTE | 2019-04-19 15:00 | NUR ---
[facility] REMOVED INTACT
[2019-04-19 15:02] VITALS: BP 144/89
--- NOTE | 2019-04-19 15:15 | NUR ---
MRSA COLLECTED AND SENT TO THE LAB
[2019-04-19 15:49] VITALS: BP 152/96
--- NOTE | 2019-04-19 16:08 | NUR ---
O2 DELIVERED TO THE PATIENT BY [facility], HE EXPLAINED TO THE PATIENT HOW TO USE IT, AND THAT SHE WOULD HAVE MORE DELIVERED TO HER HOME LATER
--- NOTE | 2019-04-19 16:25 | NUR ---
SPOKE WITH MEDIA SUPERVISOR AND THAT HAVE NO HOME HEALTH FOR THE PATIENT YET THEY ARE STILL WAITING
--- NOTE | 2019-04-19 16:45 | NUR ---
TLC REMOVED FROM THE [facility] INTACT
--- NOTE | 2019-04-19 17:02 | NUR ---
AWNING INSTALLER TALKING TO THE PATIENT A BOUT HOME HEALTH
--- NOTE | 2019-04-19 17:06 | NUR ---
SEBASTIÁN FROM [facility] [employer] [employer] SPOKE WITH THE PATIENT AND SHE REFUSED THE HOME HEALTH THAT SHE WAS OFFERING TO HER,
--- NOTE | 2019-04-19 17:10 | NUR ---
UP TO THE BR AND URINATED AND HAD A SMALL BM
--- NOTE | 2019-04-19 17:15 | NUR ---
REMOVED LEFT HAND SALINE LOCK, INTACT
--- NOTE | 2019-04-19 17:16 | NUR ---
assessment Ss consult hh for Pt and O2 2l. order sent to [facility] for and sent to [facility], [facility], [facility] and all declined except [facility] with 40% copay 100.00 per visit. Pt declined home health and stated would hire her own team because she wants aquatic pt and worried about hh with her pets. Portable O2 at bedside delivered by [facility]. Reported to Margarita BOYLE. Addendum: 04/19/19 at 1718 by Estrellita SHUKLA Amended: Links added.
--- NOTE | 2019-04-19 17:34 | NUR ---
DISCHARGE INSTRUCTIONS GIVEN AND PATIENT VERBALIZED UNDERSTANDING
--- NOTE | 2019-04-19 17:50 | NUR ---
FRIEND HERE TO METAL MOLDER THE PATIENT REMOVED THE 20G FROM THE [facility] INTACT, STATED SHE HAD ALL BELONGINGS INCLUDING PHONE AND MAP EDITOR AND PURSE, REMINDED HER TO METAL MOLDER HER MEDICATIONS AT [facility] WHERE THE MD CALLED THEM IN , VERBALIZED UNDERSTANDING, PATIENT LEFT BY W/C TO PRIVATE CAR
== END 2019-04-19 17:55 | disposition home or self-care (01) | DRG 870 ==
LOC: EDBD 05:36 → ER 05:36 → TELE 05:37 → DOU IN ICU 14:49 → ICU WEST 04-08 11:19 → DOU IN ICU 04-17 17:19
PROVIDERS: ADMIT Nurse Practitioner Acute Care; ATTEND Internal Medicine
PROC: 0BH17EZ Insertion of Endotracheal Airway into Trachea, Via Natural or Artificial Opening (ICD-10-PCS; principal; 2019-04-08)
PROC: 5A1955Z Respiratory Ventilation, Greater than 96 Consecutive Hours (ICD-10-PCS; 2019-04-08)
PROC: 0B9D7ZX Drainage of Right Middle Lung Lobe, Via Natural or Artificial Opening, Diagnostic (ICD-10-PCS; 2019-04-09)
PROC: 5A09357 Assistance with Respiratory Ventilation, Less than 24 Consecutive Hours, Continuous Positive Airway Pressure (ICD-10-PCS; 2019-04-16)
DX: A41.9 Sepsis, unspecified organism (principal); E43 Unspecified severe protein-calorie malnutrition; J96.01 Acute respiratory failure with hypoxia; R65.21 Severe sepsis with septic shock; J18.9 Pneumonia, unspecified organism; E87.4 Mixed disorder of acid-base balance; I42.9 Cardiomyopathy, unspecified; D50.9 Iron deficiency anemia, unspecified; E05.90 Thyrotoxicosis, unspecified without thyrotoxic crisis or storm; E11.22 Type 2 diabetes mellitus with diabetic chronic kidney disease; E87.6 Hypokalemia; G43.109 Migraine with aura, not intractable, without status migrainosus; G89.29 Other chronic pain; N18.3 Chronic kidney disease, stage 3 (moderate); I25.2 Old myocardial infarction; Z82.49 Family history of ischemic heart disease and other diseases of the circulatory system; Z90.710 Acquired absence of both cervix and uterus; Z98.1 Arthrodesis status; Z79.899 Other long term (current) drug therapy; Z68.28 Body mass index [BMI] 28.0-28.9, adult
CPT/HCPCS: 36415; 36600; 70450; 71045; 71046; 71275; 80048; 80053; 80076; 80202; 81001; 82040; 82550; 82553; 82570; 82805; 82962; 83036; 83540; 83550; 83605; 83615; 83735; 83880; 84100; 84156; 84300; 84439; 84443; 84484; 84550; 85007; 85025; 85027; 85379; 85384; 85610; 85730; 86703; 86704; 86706; 86708; 86803; 86850; 86900; 86901; 87040; 87070; 87081; 87086; 87205; 87278; 87340; 87804; 92610; 93005; 93306; 94002; 94003; 94640; 94660; 94668; 94761; 96365; 96366; 96367; 96375; G0378; J0171; J0330; J0696; J1956; J2001; J2185; J2250; J2405; J2543; J2704; J3480; J3490; J7060; P9047

== ENCOUNTER 2021-11-24 17:53 | Emergency (ER) | payer SELFPAY ==
[~2021-11-24] VITALS: Ht 165.1 cm; Wt 81.6 kg
[2021-11-24 17:53] VITALS: BP 196/109
== END 2021-11-24 18:31 | disposition left against medical advice (07) ==
LOC: EDBD 17:53 → ER 17:53
DX: R10.84 Generalized abdominal pain (principal); R11.2 Nausea with vomiting, unspecified; R19.7 Diarrhea, unspecified; F12.10 Cannabis abuse, uncomplicated; Z97.10 Presence of artificial limb (complete) (partial), unspecified; Z90.89 Acquired absence of other organs

== ENCOUNTER → 2024-03-01 | Outpatient (CLI) | payer BC ==
[2024-03-01 12:34] LABS: Urine Bacteria None Seen /hpf (None Seen)
[2024-03-01 12:41] LABS: Urine Blood Negative /uL (Negative); Urine Clarity Clear (Clear); Urine Color Light-Yellow (Yellow); Urine Protein, UAD Negative (Negative); Urine Specific Gravity 1.011 (1.001-1.035); Urine Urobilinogen Normal (Negative); Urine WBC <1 /hpf (0 - 5); Urine pH 6.5 (5.0-9.0)
[2024-03-01 12:43] LABS: Basophils # (auto) 0 10 ^3/uL (0-0.2); Basophils % (auto) 0.3 % (0.0-2.0); Eosinophils # (auto) 0.1 10 ^3/uL (0-0.8); Eosinophils % (auto) 1.3 % (0.0-7.0); Hematocrit 40.3 % (36.0-46.0); Hemoglobin 13.5 g/dL (12.2-16.2); Lymphocytes # (auto) 2.8 10 ^3/uL (0.4-5.4); Lymphocytes % (auto) 35.1 % (10.0-50.0); Mean Corpuscular Hemoglobin 32.4 pg (28.0-32.0); Mean Corpuscular Hgb Conc. 33.5 g/dL (32.0-36.0); Mean Corpuscular Volume 96.7 fL (80.0-100.0); Monocytes # (auto) 0.5 10 ^3/uL (0-1.3); Monocytes % (auto) 6.7 % (0.0-12.0); Neutrophils # (auto) 4.5 10 ^3/uL (1.6-8.6); Neutrophils % (auto) 56.6 % (37.0-80.0); Red Blood Cells 4.17 10^6/uL (4.0-5.20); Red Cell Distribution Width 13.3 % (11.8-14.3); White Blood Cell 7.9 10^3/uL (4.4-10.8)
[2024-03-01 13:08] LABS: % Iron Saturation 27.3 % (15-50); Alanine Aminotransferase 27 U/L (7-40); Alkaline Phosphatase 100 U/L (46-116); Anion Gap 8 (5-15); Aspartate Aminotransferase 20 U/L (13-40); Bilirubin, Total 0.6 mg/dL (0.2-1.0); Blood Urea Nitrogen 12 mg/dL (9-23); Calcium 10.1 mg/dL (8.5-10.1); Carbon Dioxide 27 mmol/L (20-30); Chloride 106 mmol/L (98-107); Cholesterol 230 mg/dL (< 200); Glucose 88 mg/dL (74-106); HDL Cholesterol 80 mg/dL (40-59); LDL Cholesterol 147 mg/dL (< 100); Magnesium 2.1 mg/dL (1.6-2.6); Potassium 3.4 mmol/L (3.5-5.1); Sodium 141 mmol/L (136-145); Total Protein 7.7 g/dL (5.7-8.2); Triglycerides 83 mg/dL (< 150)
[2024-03-01 13:11] LABS: Free T3 3.21 pg/mL (2.3-4.2); T3 Total 1.23 ng/mL (0.60-1.81)
[2024-03-01 13:12] LABS: Free T4 (Free Thyroxine) 1.05 ng/dL (0.89-1.76)
[2024-03-01 14:07] LABS: Uric Acid 4.1 mg/dL (3.1-7.8)
== END | disposition home or self-care (01) ==
LOC: LAB 12:15
PROVIDERS: ATTEND Family Medicine
DX: D49.6 Neoplasm of unspecified behavior of brain (principal)
CPT/HCPCS: 36415; 80053; 80061; 81001; 82306; 82607; 83036; 83540; 83550; 83735; 84439; 84480; 84481; 84550; 85025; 87086